=== PATIENT | male | born 1975 | race Caucasian/White ===

== ENCOUNTER 2019-02-08 20:57 | Emergency (ER) | payer BC ==
[2019-02-08 21:08] VITALS: BMI 30.7
--- NOTE | 2019-02-08 21:23 | ED PDOC ---
Arrival/HPI - General Chief Complaint: Lower Extremity Problem/Injury Time Seen by Provider: 02/08/19 21:03 Historian: Patient - History of Present Illness Narrative History of Present Illness (Text): 02/08/19 21:23 Williams Borden is a 44 year old, who denies any significant past medical history, who presents to the ED complaining of right leg pain. Patient notes while at work yesterday he began experiencing pain to his right anterior lower leg and noted associated redness and swelling to the area. Patient denies any recent trauma or injury. Patient also notes a wound to his right great toe for the past several days, which has not healed. Patient notes he has a family history of diabetes. Patient denies any fever, chills, nausea, vomiting, diarrhea, urinary symptoms, headache, dizziness, or any other complaints. Symptom Onset: Gradual Symptom Course: Unchanged Activities at Onset: Light Context: Home Past Medical History - Provider Review Nursing Documentation Reviewed: Yes - Cardiac Hx Cardiac Disorders: No - Pulmonary Hx Respiratory Disorders: Yes Hx Asthma: Yes - Psychiatric Hx Substance Use: No - Anesthesia Hx Anesthesia: No Family/Social History - Physician Review Nursing Documentation Reviewed: Yes Family/Social History: Unknown Family HX Smoking Status: Heavy Smoker > 10 Cigarettes Daily Hx Alcohol Use: No Hx Substance Use: No Allergies/Home Meds Allergies/Adverse Reactions: Allergies No Known Allergies Allergy (Verified 02/08/19 21:07) Home Medications: Home Meds Medication Instructions Recorded Confirmed Albuterol HFA [Ventolin HFA 90 2 puff IH PRN PRN 02/08/19 02/08/19 mcg/actuation (8 g)] Review of Systems - Physician Review All systems were reviewed & negative as marked: Yes - Review of Systems Constitutional: Normal. absent: Fevers Eyes: Normal ENT: Normal Respiratory: Normal. absent: SOB, Cough Cardiovascular: Normal. absent: Chest Pain Gastrointestinal: Normal. absent: Abdominal Pain, Diarrhea, Nausea, Vomiting Genitourinary Male: Normal. absent: Dysuria, Frequency, Hematuria, Urinary Output Changes Musculoskeletal: Normal. absent: Back Pain, Neck Pain Skin: Ulcer (+right great toe), Cellulitis (+pain/redness to right anterior lower leg) Neurological: Normal. absent: Headache, Dizziness Endocrine: Normal Hemo/Lymphatic: Normal Psychiatric: Normal Physical Exam Vital Signs Reviewed: Yes Vital Signs Temp Pulse Resp BP Pulse Ox 02/08/19 21:07 98.5 F 98 H 18 149/59 L 94 L Temperature: Afebrile Blood Pressure: Normal Pulse: Regular Respiratory Rate: Normal Appearance: Positive for: Well-Appearing, Non-Toxic, Comfortable Pain Distress: None Mental Status: Positive for: Alert and Oriented X 3 - Systems Exam Head: Present: Atraumatic, Normocephalic Pupils: Present: PERRL Extroacular Muscles: Present: EOMI Conjunctiva: Present: Normal Mouth: Present: Moist Mucous Membranes Neck: Present: Normal Range of Motion Respiratory/Chest: Present: Clear to Auscultation, Good Air Exchange. No: Respiratory Distress, Accessory Muscle Use Cardiovascular: Present: Regular Rate and Rhythm, Normal S1, S2. No: Murmurs Abdomen: No: Tenderness, Distention, Peritoneal Signs Back: Present: Normal Inspection Upper Extremity: Present: Normal Inspection. No: Cyanosis, Edema Lower Extremity: Present: Tenderness (Tenderness to right anterior lower leg), Swelling (Swelling to right lower leg), Erythema (Erythema to right anterior lower leg), Temperature Abnormalties (Warmth to right lower leg). No: Edema, Cyanosis, Deformity Neurological: Present: GCS=15, CN II-XII Intact, Speech Normal Skin: Present: Warm, Dry, Normal Color. No: Rashes Psychiatric: Present: Alert, Oriented x 3, Normal Insight, Normal Concentration Medical Decision Making ED Course and Treatment: 02/08/19 21:23 Impression: 44 year old male complaining of right lower leg pain, swelling, and redness. Plan: -- US Duplex Lower Extremities -- Labs, blood cultures -- Vancomycin -- Reassess and disposition Prior Visits: Notes and results from previous visits were reviewed. Progress Notes: 02/08/19 23:19 US Duplex Lower Extremities preliminary read negative for DVT. 02/09/19 00:25 Leaving Against Medical Advice (AMA): The patient is choosing to leave against medical advice. I have personally explained to the patient that choosing to do so may result in permanent bodily harm, disability, or . I have discussed at great length that without further evaluation and monitoring there may be unforeseen circumstances and/or deterioration causing permanent bodily harm or as a result of their choice . The patient is alert, oriented, and shows the mental capacity to make clear decisions regarding the patients health care at this time. The patient continues to wish to leave against medical advice. In light of the patients decision to leave against medical advice, the patient is aware of the importance to following up as instructed. The patient has been advised that they should return to the emergency room immediately if they change their mind at any time, or if their condition begins to change or worsen in any way. - Scribe Statement The provider has reviewed the documentation as recorded by the Trina Antunez Provider Scribe Attestation: All medical record entries made by the Scribe were at my direction and personally dictated by me. I have reviewed the chart and agree that the record accurately reflects my personal performance of the history, physical exam, medical decision making, and the department course for this patient. I have also personally directed, reviewed, and agree with the discharge instructions and disposition. Disposition/Present on Arrival - Present on Arrival History of DVT/PE: No History of Uncontrolled Diabetes: No Urinary Catheter: No History of Decub. Ulcer: No History Surgical Site Infection Following: None - Disposition Diagnosis: Cellulitis of leg without foot, right Disposition: AGAINST MEDICAL ADVICE Discharge Instructions (ExitCare): Cellulitis (ED) Additional Instructions: I am leaving against medical advice Prescriptions: Sulfamethoxazole/Trimethoprim [Bactrim DS 800 mg-160 mg] 1 tab PO BID #20 tab Cephalexin [cephalexin] 500 mg PO BID #20 cap Referrals: Hillary Cordero MD [Medical Doctor] - Follow up with primary Forms: [employer] (Yakut)
[2019-02-08] MEDS ORDERED: Vancomycin 1gm in NS 250ml 1 GM/250 ML BAG IVPB STA (21:29)
[2019-02-08 22:27] LABS: BASO # 0.02 K/mm3 (0.0-2.0); BASO % 0.1 % (0.0-3.0); EOS # 0.2 (0.0-0.7); EOS % 1.2 % (1.5-5.0); HEMOGLOBIN 15.1 g/dL (14.0-18.0); LYMPH # 2.1 (1.2-3.4); LYMPH % 11.4 % (22.0-35.0); MEAN CELL VOLUME 89.1 fl (80.0-105.0); MEAN CORPUSCULAR HEMOGLOBIN 29.4 pg (25.0-35.0); MEAN PLATELET VOLUME 10.3 fl (7.0-11.0); MONO # 1.2 (0.1-0.6); MONO % 6.8 % (1.0-6.0); RBC 5.13 10^6/uL (3.5-6.1)
[2019-02-08 22:47] LABS: ALB/GLOB RATIO 0.9 (1.1-1.8); ALBUMIN 3.6 g/dL (3.0-4.8); BLOOD UREA NITROGEN 20 mg/dL (7-21); CALCIUM 8.3 mg/dL (8.4-10.5); GFR NON-AFRICAN AMERICAN > 60
[2019-02-08 22:48] LABS: ALT/SGPT 21 U/L (7-56); AST/SGOT 30 U/L (17-59)
[2019-02-09 00:27] VITALS: BP 143/89; PULSE 89; RESP 16; TEMP 98.9; O2SAT 100
--- NOTE | 2019-02-09 17:34 | US ---
PROCEDURE: Right lower extremity venous US HISTORY: Leg pain and swelling. Evaluate for DVT. PHYSICIAN(S): Danilo Youssef M.D. TECHNIQUE: Duplex sonography and color-flow Doppler with graded compression were used to evaluate the deep venous system of the right lower extremity. FINDINGS: The visualized deep venous system of the right lower extremity is sonographically normal and compressible. Normal waveforms and augmentation are seen. There is no sonographic evidence for deep venous thrombosis in the visualized segments of the right lower extremity. IMPRESSION: 1. No sonographic evidence for deep venous thrombosis in the visualized segments of the right lower extremity.
== END 2019-02-09 00:26 | disposition left against medical advice (07) ==
LOC: ED 20:57
DX: L03.115 Cellulitis of right lower limb (principal); Z83.3 Family history of diabetes mellitus

== ENCOUNTER 2019-02-09 15:03 | Inpatient (IN) | payer BC ==
[2019-02-09] MEDS ORDERED: Piperacillin/Tazobact 3.375 gm 100 ML IVPB STA (15:57)
[2019-02-09] MEDS ORDERED: Vancomycin 1gm in NS 250ml 1 GM/250 ML BAG IVPB STA (15:57)
--- NOTE | 2019-02-09 16:03 | ED PDOC ---
Arrival/HPI - General Historian: Patient - History of Present Illness Narrative History of Present Illness (Text): 02/09/19 16:01 CC: RLE erythema and pain HPI: 44 yo male w/ no sig PMH comes to ED for evaluation of right lower extremity infection. Patient states he was in ED yesterday but signed out AMA due to work related reasons. Patient came back to hospital because the infection spread more which was demonstrated as patient had picture of the infection from yesterday. Patient reports he had subjective fevers. Denies prior episodes. Admits to hitting a 30lb box at work in the past week. Denies chest pain, sob, n/v, constipation or diarrhea, and dysuria. Time/Duration: > week Symptom Onset: Sudden Symptom Course: Worsening Activities at Onset: Rest Context: Sitting <Chanell Washington - Last Filed: 02/09/19 17:14> <Rik Tran DO - Last Filed: 02/09/19 18:26> - General Chief Complaint: Lower Extremity Problem/Injury Time Seen by Provider: 02/09/19 15:08 Past Medical History - Provider Review Nursing Documentation Reviewed: Yes - Past History Past History: Non-Contributing - Infectious Disease Hx of Infectious Diseases: None - Past Medical History Past Medical History: Non-Contributing - Cardiac Hx Cardiac Disorders: No - Pulmonary Hx Respiratory Disorders: Yes Hx Asthma: Yes - Neurological Hx Neurological Disorder: No - HEENT Hx HEENT Disorder: No - Renal Hx Renal Disorder: No - Endocrine/Metabolic Hx Endocrine Disorders: No - Hematological/Oncological Hx Blood Disorders: No - Integumentary Hx Dermatological Disorder: No - Musculoskeletal/Rheumatological Hx Musculoskeletal Disorders: No - Gastrointestinal Hx Gastrointestinal Disorders: No - Genitourinary/Gynecological Hx Genitourinary Disorders: No - Psychiatric Hx Psychophysiologic Disorder: No Hx Substance Use: No - Past Surgical History Past Surgical History: No Previous - Anesthesia Hx Anesthesia: No <Chanell Washington - Last Filed: 02/09/19 17:14> Family/Social History Family/Social History: No Known Family HX Smoking Status: Heavy Smoker > 10 Cigarettes Daily Hx Alcohol Use: No Hx Substance Use: No <Chanell Washington - Last Filed: 02/09/19 17:14> Allergies/Home Meds <Chanell Washington - Last Filed: 02/09/19 17:14> <Rik Tran DO - Last Filed: 02/09/19 18:26> Allergies/Adverse Reactions: Allergies No Known Allergies Allergy (Verified 02/08/19 21:07) Home Medications: Home Meds Medication Instructions Recorded Confirmed Albuterol HFA [Ventolin HFA 90 2 puff IH PRN PRN 02/08/19 02/08/19 mcg/actuation (8 g)] Review of Systems - Physician Review All systems were reviewed & negative as marked: Yes - Review of Systems Constitutional: Normal. absent: Fatigue, Weight Change, Fevers, Night Sweats Eyes: Normal. absent: Vision Changes, Photophobia, Eye Pain ENT: Normal. absent: Hearing Changes, Tinnitus, TMJ Pain Cardiovascular: Chest Pain. absent: Palpitations, Edema, Calf Pain, [place], Orthopnea Gastrointestinal: Normal. absent: Abdominal Pain, Stool Changes, Constipation, Diarrhea Genitourinary Male: Normal. absent: Dysuria, Frequency, Hematuria Skin: Cellulitis Neurological: Normal. absent: Headache, Dizziness Endocrine: Normal. absent: Diaphoresis, Polyuria Psychiatric: Normal. absent: Anxiety, Depression <FelixChanell - Last Filed: 02/09/19 17:14> Physical Exam Vital Signs Reviewed: Yes Vital Signs Temp Pulse Resp BP Pulse Ox 02/09/19 15:32 100.3 F H 92 H 18 125/77 95 Temperature: Febrile Blood Pressure: Normal Pulse: Regular Respiratory Rate: Normal Appearance: Positive for: Well-Appearing, Non-Toxic, Comfortable. No: Ill- Appearing, Unkept, Uncomfortable Pain Distress: None Mental Status: Positive for: Alert and Oriented X 3 - Systems Exam Head: Present: Atraumatic, Normocephalic. No: Tenderness, Contusion, Swelling Pupils: Present: PERRL Extroacular Muscles: Present: EOMI Conjunctiva: Present: Normal Respiratory/Chest: Present: Clear to Auscultation, Good Air Exchange. No: Respiratory Distress, Accessory Muscle Use, Wheezes, Decreased Breath Sounds Cardiovascular: Present: Regular Rate and Rhythm, Normal S1, S2. No: Murmurs, Irregular Rhythm Abdomen: Present: Normal Bowel Sounds. No: Tenderness, Distention, Peritoneal Signs, Rebound, Guarding Upper Extremity: Present: Normal Inspection. No: Cyanosis, Edema Lower Extremity: Present: Tenderness, Erythema, Other (right distal leg with anterior erythema, no fluctuance, no oozing, or draining or pus appreciated). No: Normal Inspection Neurological: Present: GCS=15, CN II-XII Intact, Speech Normal Skin: Present: Warm, Dry, Normal Color, Other (in between first 2 digits on foot on right extremity, open lesion (dermatopyhyte infection suspecteD)). No: Rashes Psychiatric: Present: Alert, Oriented x 3, Normal Insight, Normal Concentration <Chanell Washington - Last Filed: 02/09/19 17:14> Vital Signs Temp Pulse Resp BP Pulse Ox 02/09/19 15:32 100.3 F H 92 H 18 125/77 95 <Rik Tran DO - Last Filed: 02/09/19 18:26> Medical Decision Making ED Course and Treatment: 02/09/19 16:09 Impression 44 yo no PMH evaluated for right lower extremity cellulitis Plan -CBC/CMP -IV Vanc/ IV Zosyn empiric coverage for common organisms -BCx Prior Visits All prior visits and lab work reviewed for this evaluation Progress Notes will trend cbc/cmp, will need IV abx for low grade temp on admission with WBC recorded yesterday Patient will need likely 2 days of IV abx prior to oral replacement therapy for a complete 7 day course Pending labwork, Had ultrasound of lower extremity on right which was negative for DVT 02/09/19 16:57 CBC White count trending downward Tylenol 650mg given for fever Calling Dr. Wei to see if will accept Patient will likely need 2 day inpatient admission for IV abx (fever+white count) and clinical response to abx Will get baseline Lactate 02/09/19 17:[address] Wei who requested the following orders to be placed: Lactate, CT of lower extremity w/ contrast, PT/INR studies Dr. Wei asked ED resident to call medicine resident to inform medicine team of new admission Patient will be admitted for minimal 2-3 days for IV abx as per medicine team. Information was relayed to patient as well. Re-evaluation Time: 17:16 Reassessment Condition: Re-examined, Unchanged - Lab Interpretations Lab Results: 02/09/19 16:28 02/09/19 16:28 Lab Results 02/09/19 16:28: Sodium 140, Potassium 3.9, Chloride 103, Carbon Dioxide 27, Anion Gap 14, BUN 19, Creatinine 1.1, Est GFR ( Amer) > 60, Est GFR (Non- Af Amer) > 60, Random Glucose 107, Calcium 8.4, Total Bilirubin 0.3, AST 23, ALT 16, Alkaline Phosphatase 69, Total Protein 7.9, Albumin 3.7, Globulin 4.2, Albumin/Globulin Ratio 0.9 L 02/09/19 16:28: WBC 14.3 H D, RBC 5.05, Hgb 14.6, Hct 45.5, MCV 90.1, MCH 28.9, MCHC 32.1, RDW 14.2, Plt Count 236, MPV 8.6, Neut % (Auto) 69.8 H, Lymph % (Auto) 18.3 L, [place] % (Auto) 10.3 H, Eos % (Auto) 1.5, Baso % (Auto) 0.1, Lymph # (Auto) 2.6, [place] # (Auto) 1.5 H, Eos # (Auto) 0.2, Baso # (Auto) 0.01, Absolute Neuts (auto) 10.02 H I have reviewed the lab results: Yes Interpretation: Abnormal lab values - Transfer of Care Pending Radiology Studies:: CT lower extremity of right with contrast <Chanell Washington - Last Filed: 02/09/19 17:14> ED Course and Treatment: 02/09/19 17:30 Patient Seen with Resident: In agreement with resident note which contains more details about the patient. Patient seen and evaluated with resident. Came up with plan and treatment together. - Lab Interpretations Lab Results: Total Bilirubin 0.3 mg/dL (0.2-1.3) 02/09/19 16:28 AST 23 U/L (17-59) 02/09/19 16:28 ALT 16 U/L (7-56) 02/09/19 16:28 Alkaline Phosphatase 69 U/L (38-126) 02/09/19 16:28 Total Protein 7.9 g/dL (5.8-8.3) 02/09/19 16:28 Albumin 3.7 g/dL (3.0-4.8) 02/09/19 16:28 Globulin 4.2 gm/dL 02/09/19 16:28 Albumin/Globulin Ratio 0.9 (1.1-1.8) L 02/09/19 16:28 - Medication Orders Current Medication Orders: Discontinued Medications Acetaminophen (Tylenol 325mg Tab) 650 mg PO STAT STA Stop: 02/09/19 16:57 Vancomycin HCl (Vancomycin 1gm) 1 gm in 250 mls @ 167 mls/hr IVPB STAT STA; Protocol Stop: 02/09/19 17:26 Piperacillin Sod/Tazobactam Sod (Zosyn 3.375 In Ns 100ml) 100 mls @ 200 mls/hr IVPB STAT STA; Protocol Stop: 02/09/19 16:26 Last Admin: 02/09/19 16:27 Dose: 200 mls/hr eMAR Start Stop Document 02/09/19 16:27 [email or web address] (Rec: 02/09/19 16:29 [email or web address] [id number]) Intravenous Solution Start Date 02/09/19 Start Time 16:29 <Rik Tran DO - Last Filed: 02/09/19 18:26> - PA / DEPENDENCY COUNSELOR / Resident Statement LISA has reviewed & agrees with the documentation as recorded. LISA has examined the patient and agrees with the treatment plan. <Rik Tran DO - Last Filed: 02/09/19 18:26> Disposition/Present on Arrival - Present on Arrival Any Indicators Present on Arrival: No History of DVT/PE: No History of Uncontrolled Diabetes: No Urinary Catheter: No History of Decub. Ulcer: No History Surgical Site Infection Following: None - Disposition Have Diagnosis and Disposition been Completed?: Yes Disposition Time: 17:17 Patient Plan: Admission <Chanell Washington - Last Filed: 02/09/19 17:14> - Disposition Disposition Time: 16:55 <Rik Tran DO - Last Filed: 02/09/19 18:26> - Disposition Diagnosis: Cellulitis of leg without foot, right Patient Problems: Current Active Problems Problem Status Onset Cellulitis of leg without foot, right Acute Condition: STABLE
[2019-02-09 16:32] LABS: BASO # 0.01 K/mm3 (0.0-2.0); BASO % 0.1 % (0.0-3.0); EOS # 0.2 (0.0-0.7); EOS % 1.5 % (1.5-5.0); HEMOGLOBIN 14.6 g/dL (14.0-18.0); LYMPH # 2.6 (1.2-3.4); LYMPH % 18.3 % (22.0-35.0); MEAN CELL VOLUME 90.1 fl (80.0-105.0); MEAN CORPUSCULAR HEMOGLOBIN 28.9 pg (25.0-35.0); MEAN CORPUSCULAR HGB CONC 32.1 g/dl (31.0-37.0); MEAN PLATELET VOLUME 8.6 fl (7.0-11.0); MONO # 1.5 (0.1-0.6); MONO % 10.3 % (1.0-6.0); RBC 5.05 10^6/uL (3.5-6.1); RED CELL DISTRIBUTION WIDTH 14.2 % (11.5-14.5); WHITE BLOOD COUNT 14.3 10^3/uL (4.5-11.0)
[2019-02-09 16:55] LABS: ALB/GLOB RATIO 0.9 (1.1-1.8); ALBUMIN 3.7 g/dL (3.0-4.8); ALT/SGPT 16 U/L (7-56); AST/SGOT 23 U/L (17-59); BLOOD UREA NITROGEN 19 mg/dL (7-21); CALCIUM 8.4 mg/dL (8.4-10.5); GFR NON-AFRICAN AMERICAN > 60
[2019-02-09 18:05] LABS: VENOUS BLOOD GAS PO2 54 mm/Hg (30-55)
[2019-02-09 18:11] LABS: INR 1.21; PARTIAL THROMBOPLASTIN TIME 32.5 Seconds (26.9-38.3); PROTHROMBIN TIME 13.4 SECONDS (9.4-12.5)
--- NOTE | 2019-02-09 18:28 | CP.PCM.HP ---
History of Present Illness - History of Present Illness History of Present Illness: Priyank Shafer, PGY1 H&P for Dr Sanjuana Fortune: anterior right lower extremity pain/swelling x2 days 44 y/o male with PMH of asthma, COPD presented to the ED with anterior right lower extremity pain/swelling x2 days. Patient reports pain is progressive, dull, 7/10, not radiating, partially relieved with tylenol/ibuprofen and rest, worsens with ambulation. Pain is associated with swelling, redness, tenderness to touch, subjective fever, chills. Patient is not aware if he might have trauma to the area. Denies local wound in the area or insect bite. Patient visited [facility] yesterday for the same symptoms but signed AMA as he had to go to work. Came today as symptoms are getting worse. Patient denies CP, SOB, palpitations, muscle weakness, loss of sensation, abdominal pain, N/V/D. 12 points ROS reviewed otherwise negative PMH: COPD, asthma PSH: denies Meds: albuterol All: NKDA SH: smokes 1 ppd/10 years, denies alcohol or drud use FH: father, DM PMD: none Present on Admission - Present on Admission Any Indicators Present on Admission: No Past Patient History - Infectious Disease Hx of Infectious Diseases: None - Past Social History Smoking Status: Heavy Smoker > 10 Cigarettes Daily - CARDIAC Hx Cardiac Disorders: No - PULMONARY Hx Respiratory Disorders: Yes Hx Asthma: Yes - NEUROLOGICAL Hx Neurological Disorder: No - HEENT Hx HEENT Problems: No - RENAL Hx Chronic Kidney Disease: No - ENDOCRINE/METABOLIC Hx Endocrine Disorders: No - HEMATOLOGICAL/ONCOLOGICAL Hx Blood Disorders: No - INTEGUMENTARY Hx Dermatological Problems: No - MUSCULOSKELETAL/RHEUMATOLOGICAL Hx Musculoskeletal Disorders: No - GASTROINTESTINAL Hx Gastrointestinal Disorders: No - GENITOURINARY/GYNECOLOGICAL Hx Genitourinary Disorders: No - PSYCHIATRIC Hx Psychophysiologic Disorder: No Hx Substance Use: No - SURGICAL HISTORY Hx Surgeries: No - ANESTHESIA Hx Anesthesia: No Meds Allergies/Adverse Reactions: Allergies Allergy/AdvReac Type Severity Reaction Status Date / Time No Known Allergies Allergy Verified 02/08/19 21:07 Physical Exam - Constitutional Appears: Well, Non-toxic, No Acute Distress - Head Exam Head Exam: ATRAUMATIC, NORMAL INSPECTION, NORMOCEPHALIC - Eye Exam Eye Exam: EOMI, Normal appearance, PERRL Pupil Exam: NORMAL ACCOMODATION, PERRL - ENT Exam ENT Exam: Mucous Membranes Moist, Normal Exam - Neck Exam Neck exam: Positive for: Normal Inspection - Respiratory Exam Respiratory Exam: Prolonged Expiratory Phase, Wheezes (b/l diffuse). absent: Rales, Rhonchi, Respiratory Distress - Cardiovascular Exam Cardiovascular Exam: +S1, +S2. absent: Gallop, JVD, RRR, Rubs - GI/Abdominal Exam GI & Abdominal Exam: Normal Bowel Sounds, Soft. absent: Guarding, Mass, Rebound, Rigid, Tenderness - Expanded Lower Extremities Exam Right Lower Leg Exam: erythema, swelling, tenderness. absent: Michael's sign Neuro vacular tendon exam: absent: motor deficit, pulse deficit, sensory deficit - Back Exam Back exam: NORMAL INSPECTION - Neurological Exam Neurological exam: Alert, CN II-XII Intact, Normal Gait, Oriented x3, Reflexes Normal - Psychiatric Exam Psychiatric exam: Normal Affect, Normal Mood - Skin Skin Exam: Erythema (RLE), Normal Color, Warm Results - Vital Signs Recent Vital Signs: Last Vital Signs Temp 99.9 F H 02/09/19 17:45 Pulse 87 02/09/19 17:45 Resp 18 02/09/19 17:45 BP 129/89 02/09/19 17:45 Pulse Ox 99 02/09/19 17:45 - Labs Result Diagrams: 02/09/19 16:28 02/09/19 16:28 Labs: Laboratory Results - last 24 hr 02/09/19 02/09/19 02/09/19 16:28 16:28 17:55 WBC 14.3 H D RBC 5.05 Hgb 14.6 Hct 45.5 MCV 90.1 MCH 28.9 MCHC 32.1 RDW 14.2 Plt Count 236 MPV 8.6 Neut % (Auto) 69.8 H Lymph % (Auto) 18.3 L [place] % (Auto) 10.3 H Eos % (Auto) 1.5 Baso % (Auto) 0.1 Lymph # (Auto) 2.6 [place] # (Auto) 1.5 H Eos # (Auto) 0.2 Baso # (Auto) 0.01 Absolute Neuts (auto) 10.02 H PT INR APTT pO2 54 VBG pH 7.40 VBG pCO2 42.0 VBG HCO3 26.0 VBG Total CO2 27.3 VBG O2 Sat (Calc) 92.1 H VBG Base Excess 1.0 VBG Potassium 3.5 L Glucose 106 Lactate 1.2 FiO2 21.0 Sodium 140 137.0 Potassium 3.9 Chloride 103 105.0 Carbon Dioxide 27 Anion Gap 14 BUN 19 Creatinine 1.1 Est GFR ( Amer) > 60 Est GFR (Non-Af Amer) > 60 Random Glucose 107 Calcium 8.4 Total Bilirubin 0.3 AST 23 ALT 16 Alkaline Phosphatase 69 Total Protein 7.9 Albumin 3.7 Globulin 4.2 Albumin/Globulin Ratio 0.9 L Venous Blood Potassium 3.5 L 02/09/19 17:58 WBC RBC Hgb Hct MCV MCH MCHC RDW Plt Count MPV Neut % (Auto) Lymph % (Auto) [place] % (Auto) Eos % (Auto) Baso % (Auto) Lymph # (Auto) [place] # (Auto) Eos # (Auto) Baso # (Auto) Absolute Neuts (auto) PT 13.4 H INR 1.21 APTT 32.5 pO2 VBG pH VBG pCO2 VBG HCO3 VBG Total CO2 VBG O2 Sat (Calc) VBG Base Excess VBG Potassium Glucose Lactate FiO2 Sodium Potassium Chloride Carbon Dioxide Anion Gap BUN Creatinine Est GFR ( Amer) Est GFR (Non-Af Amer) Random Glucose Calcium Total Bilirubin AST ALT Alkaline Phosphatase Total Protein Albumin Globulin Albumin/Globulin Ratio Venous Blood Potassium Assessment & Plan - Assessment and Plan (Free Text) Assessment: 44 y/o male with PMH of asthma, COPD presented to the ED with anterior right lower extremity pain/swelling x2 days. Found to be febrile with mild leukocytosis. Patient admitted to med/surg for RLE cellulitis Plan: Right LE cellulitis: -given one dose of IV Vanc/Zosyn in ED -started teflaro 600 mg q12h -low grade fever, mild leukocytosis -PT/INR 13.4/1.21 -f/u CT lower extremity w/ contrast -f/u CRP, ESR, procal, blood cx -continue IVF NS @75 cc/hr -BCx, lactate -LE duplex US negative for DVT -Tylenol 650mg prn for pain -ID consulted, Dr Cesar Asthma/COPD: -duoneb harry/prn -O2 NC prn -CXR -EKG Heavy smoker: -nicotine patch 21 -patient counseled on smoking cessation -f/u TSH, lipid profile, a1c PPX: -DVT: SCD, heparin sq -GI: protonix -Regular diet Case revieved and plan discussed with attending Dr Sanjuana Shafer, DO PGY1
[2019-02-09] MEDS ORDERED: Iohexol 350 MG/100 ML VIAL ONE (18:41)
[2019-02-09] MEDS ORDERED: Albuterol-Ipratrop 3 mg / 0.5 (3 ml) UD IH PRN (18:46)
[2019-02-09] MEDS ORDERED: Sodium Chloride 0.9% 1,000 ML IV SCH (19:00)
[2019-02-09 19:33] LABS: HDL CHOLESTEROL 40 mg/dL (29-60)
[2019-02-09 19:44] LABS: LDL CHOLESTEROL 69 mg/dL (0-129)
[2019-02-09] MEDS: Albuterol-Ipratrop 3 mg / 0.5 (3 ml) UD IH SCH (20:00)
[2019-02-09] MEDS ORDERED: Ceftaroline 600 MG in Sodium Chloride 0.9% 100 ML IVPB SCH (22:00)
[2019-02-10 00:18] VITALS: BMI 28.8
[2019-02-10] MEDS ORDERED: Pneumococcal 23-Valent Vaccine IM ONE (00:18)
[2019-02-10] MEDS: Albuterol-Ipratrop 3 mg / 0.5 (3 ml) UD IH SCH ×4 (01:34→20:37)
[2019-02-10] MEDS: Pantoprazole 40 mg EC Tab PO SCH (05:08)
[2019-02-10] MEDS: Vancomycin 1gm in NS 250ml 1 GM/250 ML BAG IVPB SCH ×2 (05:09→17:08)
[2019-02-10] MEDS ORDERED: Pantoprazole 40 mg EC Tab PO SCH (06:00)
[2019-02-10 07:54] LABS: BASO # 0.02 K/mm3 (0.0-2.0); BASO % 0.2 % (0.0-3.0); EOS # 0.3 (0.0-0.7); EOS % 2.5 % (1.5-5.0); HEMOGLOBIN 14.2 g/dL (14.0-18.0); LYMPH # 1.8 (1.2-3.4); LYMPH % 15.2 % (22.0-35.0); MEAN CELL VOLUME 89.9 fl (80.0-105.0); MEAN CORPUSCULAR HEMOGLOBIN 28.6 pg (25.0-35.0); MEAN CORPUSCULAR HGB CONC 31.8 g/dl (31.0-37.0); MEAN PLATELET VOLUME 8.7 fl (7.0-11.0); MONO # 1.4 (0.1-0.6); MONO % 11.9 % (1.0-6.0); RBC 4.96 10^6/uL (3.5-6.1); RED CELL DISTRIBUTION WIDTH 14.2 % (11.5-14.5); WHITE BLOOD COUNT 11.7 10^3/uL (4.5-11.0)
[2019-02-10 08:15] LABS: ALB/GLOB RATIO 0.9 (1.1-1.8); ALBUMIN 3.4 g/dL (3.0-4.8); ALT/SGPT 24 U/L (7-56); AST/SGOT 18 U/L (17-59); BILIRUBIN,DIRECT 0.2 mg/dL (0.0-0.4); BLOOD UREA NITROGEN 13 mg/dL (7-21); CALCIUM 7.8 mg/dL (8.4-10.5); GFR NON-AFRICAN AMERICAN > 60
--- NOTE | 2019-02-10 09:27 | US ---
HISTORY: Leg pain and swelling. Evaluate for DVT PHYSICIAN(S): Danilo Youssef MD. TECHNIQUE: Duplex sonography and color-flow Doppler with graded compression were used to evaluate the deep venous systems of both lower extremities. FINDINGS: The visualized deep venous systems of both lower extremities are sonographically normal and compressible. Normal wave forms and augmentation are seen. There is no sonographic evidence for deep venous thrombosis in the visualized segments of both lower extremities. IMPRESSION: No sonographic evidence for deep venous thrombosis in the visualized segments of both lower extremities.
--- NOTE | 2019-02-10 09:53 | CARD ---
APPROVED REPORT Date of service: 02/09/2019 EKG Measurement Heart [id number] <Conclusion> Normal sinus rhythm Nonspecific T wave abnormality Abnormal ECG
--- NOTE | 2019-02-10 10:14 | CP.PCM.PN ---
Subjective - Date & Time of Evaluation Date of Evaluation: 02/10/19 Time of Evaluation: 10:13 - Subjective Subjective: Alex Elias DO, PGY-2: Progress Note for Dr. Wei Patient was seen and examined at bedside. Patient denies any fever or chills. He reports leg feels less painful today. Otherwise, no adverse events noted. Objective - Vital Signs/Intake and Output Vital Signs (last 24 hours): Temp Pulse Resp BP Pulse Ox 98.6 F 100 H 20 122/74 96 02/10/19 06:00 02/10/19 06:00 02/10/19 06:00 02/10/19 06:00 02/10/19 06:00 Intake and Output: 02/10/19 02/10/19 06:59 18:59 Intake Total 800 Balance 800 - Medications Medications: Current Medications Acetaminophen (Tylenol 325mg Tab) 650 mg PO Q6H PRN PRN Reason: Pain, moderate (4-7) Acetaminophen (Tylenol 325mg Tab) 650 mg PO Q6 PRN PRN Reason: TEMP>=99.5F Acetaminophen (Tylenol 650 Mg Supp) 650 mg RC Q6H PRN PRN Reason: TEMP>=99.5F Albuterol/Ipratropium (Duoneb 3 Mg/0.5 Mg (3 Ml) Ud) 3 ml IH Q2H PRN PRN Reason: Shortness of Breath Albuterol/Ipratropium (Duoneb 3 Mg/0.5 Mg (3 Ml) Ud) 3 ml IH [id number] [facility] Last Admin: 02/10/19 07:50 Dose: 3 ml Clotrimazole (Lotrimin 1%) 0 gm TOP BID [facility] Stop: 02/20/19 10:01 Docusate Sodium (Colace) 100 mg PO TID [facility] Enoxaparin Sodium (Lovenox) 40 mg SC DAILY [facility]; Protocol Furosemide (Lasix) 40 mg IVP DAILY [facility] Stop: 02/12/19 10:01 Ceftriaxone Sodium (Rocephin 2 Gm Ivpb) 2 gm in 100 mls @ 100 mls/hr IVPB DAILY [facility]; Protocol Stop: 02/19/19 10:01 Vancomycin HCl (Vancomycin 1gm) 1 gm in 250 mls @ 167 mls/hr IVPB 0600,1800 [facility]; Protocol Last Admin: 02/10/19 05:09 Dose: 167 mls/hr Nicotine (Nicoderm Cq) 1 patch TD DAILY [facility] Ondansetron HCl (Zofran Inj) 4 mg IVP Q4H PRN PRN Reason: Nausea/Vomiting Pantoprazole Sodium (Protonix Ec Tab) 40 mg PO 0600 [facility] Last Admin: 02/10/19 05:08 Dose: 40 mg Polyethylene Glycol (Miralax) 17 gm PO BID [facility] - Labs Labs: 02/10/19 07:30 02/10/19 07:30 PT 13.4 SECONDS (9.4-12.5) H 02/09/19 17:58 INR 1.21 02/09/19 17:58 APTT 32.5 Seconds (26.9-38.3) 02/09/19 17:58 - Constitutional Appears: Well, Non-toxic - Head Exam Head Exam: ATRAUMATIC, NORMOCEPHALIC - Eye Exam Eye Exam: EOMI, Normal appearance - ENT Exam ENT Exam: Mucous Membranes Moist, Normal Oropharynx - Neck Exam Neck Exam: Normal Inspection - Respiratory Exam Respiratory Exam: Wheezes (bilaterally), NORMAL BREATHING PATTERN. absent: Accessory Muscle Use - Cardiovascular Exam Cardiovascular Exam: RRR, +S1, +S2 - GI/Abdominal Exam GI & Abdominal Exam: Soft, Normal Bowel Sounds - Extremities Exam Extremities Exam: absent: Calf Tenderness Additional comments: right lower extremity appears reddened anteriorly, and warm and swollen compared to left leg - Back Exam Back Exam: NORMAL INSPECTION. absent: CVA tenderness (L), CVA tenderness (R) - Neurological Exam Neurological Exam: Alert, Awake, Oriented x3 - Psychiatric Exam Psychiatric exam: Normal Affect, Normal Mood - Skin Skin Exam: Dry, Intact, Normal Color, Warm Assessment and Plan - Assessment and Plan (Free Text) Assessment: 44 y/o male with PMH of asthma, COPD presented to the ED with anterior right lower extremity pain/swelling x2 days. Found to be febrile with mild leukocytosis. Patient admitted to med/surg for RLE cellulitis Plan: Right LE cellulitis: - given one dose of IV Vanc/Zosyn in ED - Vancomycin 1 gram q12h IVPB - Ceftriaxone 2 gram daily - lower extremity CT w/ contrast shows findings consistent with cellulitis, no abscess - CRP > 15, ESR 40+ - LE duplex US negative for DVT - Tylenol 650mg prn for pain/fever - ID consulted, Dr Cesar - HgbA1c is 6.2 - Lasix 40 mg IVp daily for three total doses to decrease lower extremity swelling Asthma/COPD: -duoneb [facility] q6h -O2 NC prn -CT chest without contrast ordered - Heavy smoker: - nicotine patch 21 - patient counseled on smoking cessation - lipid panel shows elevated TGs at 221, otherwise acceptable PPX: -DVT: SCD, heparin sq -GI: protonix -Regular diet Case revieved and plan discussed with attending Dr Wei
--- NOTE | 2019-02-10 10:18 | CT ---
Date of service: 02/10/2019 PROCEDURE: CT Chest without contrast HISTORY: COPD/WHEEZING COMPARISON: None available. TECHNIQUE: Contiguous axial images were obtained through the chest without intravenous contrast enhancement. Sagittal and coronal reconstructions were performed. Radiation dose: Total exam DLP = 400.82 mGy-cm. This CT exam was performed using one or more of the following dose reduction techniques: Automated exposure control, adjustment of the mA and/or kV according to patient size, and/or use of iterative reconstruction technique. FINDINGS: LUNGS: In each posterior lower lobe right slightly greater than left, peribronchial thickening and trace low-density ground-glass opacities-compatible with inflammation are noted. No dense consolidation appreciated.. Visualized airway clear No suspicious masses identified. MEDIASTINUM: Unremarkable thoracic aorta. No aneurysm. Normal sized heart. Main pulmonary artery unremarkable. No vascular congestion. No lymphadenopathy. There are shoddy mediastinal and hilar lymph nodes present. No imaging suspect appearing lymph nodes suggested. No aortic atherosclerotic calcification. PLEURA: No pleural fluid. No pneumothorax. BONES: No fracture. No destructive lesion. UPPER ABDOMEN: Incidental gallbladder gallstones present. OTHER FINDINGS: None. IMPRESSION: In each posterior inferior aspect of each lower lobe are nonspecific inflammatory changes as referenced above. No dense consolidation seen. No suspicious mass. No central tracheobronchial airway pathology noted. Other findings as above.
--- NOTE | 2019-02-10 10:29 | CP.PCM.CON ---
<Tomas Gunn - Last Filed: 02/10/19 13:08> History of Present Illness - History of Present Illness History of Present Illness: Infectious disease consult note: 44-year-old male with past medical history of asthma and COPD presents to the hospital with right lower extremity redness, swelling and pain. Patient states that his symptoms started to 3 days ago. 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 Patient denies this ever occurring before. Denies any recent travel or insect bites. Of note patient was here yesterday and signed out AMA to go to work. He denies any fevers or chills. No other complaints 12 point ROS performed and negative other than stated above [place] PMH: Asthma and COPD PSH: Denies Allergies: No known drug allergies SH: Has smoked 1 pack/day for 20 years, denies any alcohol or drug usage FH: Father with diabetes Review of Systems - Review of Systems All systems: reviewed and no additional remarkable complaints except Past Patient History - Infectious Disease Hx of Infectious Diseases: None - Past Social History Smoking Status: Current Some Days Smoker - CARDIAC Hx Cardiac Disorders: No - PULMONARY Hx Respiratory Disorders: Yes Hx Asthma: Yes Hx Chronic Obstructive Pulmonary Disease (COPD): Yes - NEUROLOGICAL Hx Neurological Disorder: No - HEENT Hx HEENT Problems: No - RENAL Hx Chronic Kidney Disease: No - ENDOCRINE/METABOLIC Hx Endocrine Disorders: No - HEMATOLOGICAL/ONCOLOGICAL Hx Blood Disorders: No - INTEGUMENTARY Hx Dermatological Problems: Yes Other/Comment: 02-09-19 RIGHT GREENBERG BONE WITH DEEP BURGUNDY COLORED SKIN.EDEMA +2 ERYTHEMA PAIN. LEG CELLULITIS. - MUSCULOSKELETAL/RHEUMATOLOGICAL Hx Musculoskeletal Disorders: No Hx Falls: No - GASTROINTESTINAL Hx Gastrointestinal Disorders: No - GENITOURINARY/GYNECOLOGICAL Hx Genitourinary Disorders: No - PSYCHIATRIC Hx Psychophysiologic Disorder: No Hx Substance Use: No - SURGICAL HISTORY Hx Surgeries: No - ANESTHESIA Hx Anesthesia: No Meds Allergies/Adverse Reactions: Allergies Allergy/AdvReac Type Severity Reaction Status Date / Time No Known Allergies Allergy Verified 02/09/19 20:51 - Medications Medications: Current Medications Acetaminophen (Tylenol 325mg Tab) 650 mg PO Q6H PRN PRN Reason: Pain, moderate (4-7) Acetaminophen (Tylenol 325mg Tab) 650 mg PO Q6 PRN PRN Reason: TEMP>=99.5F Acetaminophen (Tylenol 650 Mg Supp) 650 mg RC Q6H PRN PRN Reason: TEMP>=99.5F Albuterol/Ipratropium (Duoneb 3 Mg/0.5 Mg (3 Ml) Ud) 3 ml IH Q2H PRN PRN Reason: Shortness of Breath Albuterol/Ipratropium (Duoneb 3 Mg/0.5 Mg (3 Ml) Ud) 3 ml IH [id number] [facility] Last Admin: 02/10/19 07:50 Dose: 3 ml Clotrimazole (Lotrimin 1%) 0 gm TOP BID [facility] Stop: 02/20/19 10:01 Docusate Sodium (Colace) 100 mg PO TID [facility] Enoxaparin Sodium (Lovenox) 40 mg SC DAILY [facility]; Protocol Furosemide (Lasix) 40 mg IVP DAILY [facility] Stop: 02/12/19 10:01 Ceftriaxone Sodium (Rocephin 2 Gm Ivpb) 2 gm in 100 mls @ 100 mls/hr IVPB DAILY [facility]; Protocol Stop: 02/19/19 10:01 Vancomycin HCl (Vancomycin 1gm) 1 gm in 250 mls @ 167 mls/hr IVPB 0600,1800 [facility]; Protocol Last Admin: 02/10/19 05:09 Dose: 167 mls/hr Nicotine (Nicoderm Cq) 1 patch TD DAILY [facility] Ondansetron HCl (Zofran Inj) 4 mg IVP Q4H PRN PRN Reason: Nausea/Vomiting Pantoprazole Sodium (Protonix Ec Tab) 40 mg PO 0600 [facility] Last Admin: 02/10/19 05:08 Dose: 40 mg Polyethylene Glycol (Miralax) 17 gm PO BID [facility] Physical Exam - Constitutional Appears: No Acute Distress - Head Exam Head Exam: ATRAUMATIC, NORMOCEPHALIC - Eye Exam Eye Exam: EOMI, PERRL - ENT Exam ENT Exam: Mucous Membranes Moist - Respiratory Exam Respiratory Exam: Clear to Auscultation Bilateral. absent: Rales, Wheezes - Cardiovascular Exam Cardiovascular Exam: REGULAR RHYTHM, +S1, +S2 - GI/Abdominal Exam GI & Abdominal Exam: Soft. absent: Distended, Tenderness - Extremities Exam Extremities exam: Negative for: calf tenderness Additional comments: Right lower extremity: diffuse erythema and edema covering the anterior greenberg. Warm to the touch Toes: athlete foot btwn toes Results - Vital Signs Recent Vital Signs: Last Vital Signs Temp 98.6 F 02/10/19 06:00 Pulse 100 H 02/10/19 06:00 Resp 20 02/10/19 06:00 BP 122/74 02/10/19 06:00 Pulse Ox 96 02/10/19 06:00 - Labs Result Diagrams: 02/10/19 07:30 02/10/19 07:30 Labs: Laboratory Results - last 24 hr 02/09/19 02/09/19 02/09/19 16:28 16:28 16:28 WBC 14.3 H D RBC 5.05 Hgb 14.6 Hct 45.5 MCV 90.1 MCH 28.9 MCHC 32.1 RDW 14.2 Plt Count 236 MPV 8.6 Neut % (Auto) 69.8 H Lymph % (Auto) 18.3 L [place] % (Auto) 10.3 H Eos % (Auto) 1.5 Baso % (Auto) 0.1 Lymph # (Auto) 2.6 [place] # (Auto) 1.5 H Eos # (Auto) 0.2 Baso # (Auto) 0.01 Absolute Neuts (auto) 10.02 H ESR PT INR APTT pO2 VBG pH VBG pCO2 VBG HCO3 VBG Total CO2 VBG O2 Sat (Calc) VBG Base Excess VBG Potassium Glucose Lactate FiO2 Sodium 140 Potassium 3.9 Chloride 103 Carbon Dioxide 27 Anion Gap 14 BUN 19 Creatinine 1.1 Est GFR ( Amer) > 60 Est GFR (Non-Af Amer) > 60 POC Glucose (mg/dL) Random Glucose 107 Calcium 8.4 Phosphorus Magnesium Total Bilirubin 0.3 Direct Bilirubin AST 23 ALT 16 Alkaline Phosphatase 69 Total Protein 7.9 Albumin 3.7 Globulin 4.2 Albumin/Globulin Ratio 0.9 L Triglycerides 221 H Cholesterol 155 LDL Cholesterol Direct 69 HDL Cholesterol 40 Thyroxine (T4) TSH 3rd Generation Venous Blood Potassium 02/09/19 02/09/19 02/09/19 16:28 16:28 17:55 WBC RBC Hgb Hct MCV MCH MCHC RDW Plt Count MPV Neut % (Auto) Lymph % (Auto) [place] % (Auto) Eos % (Auto) Baso % (Auto) Lymph # (Auto) [place] # (Auto) Eos # (Auto) Baso # (Auto) Absolute Neuts (auto) ESR 43 H PT INR APTT pO2 54 VBG pH 7.40 VBG pCO2 42.0 VBG HCO3 26.0 VBG Total CO2 27.3 VBG O2 Sat (Calc) 92.1 H VBG Base Excess 1.0 VBG Potassium 3.5 L Glucose 106 Lactate 1.2 FiO2 21.0 Sodium 137.0 Potassium Chloride 105.0 Carbon Dioxide Anion Gap BUN Creatinine Est GFR ( Amer) Est GFR (Non-Af Amer) POC Glucose (mg/dL) Random Glucose Calcium Phosphorus Magnesium Total Bilirubin Direct Bilirubin AST ALT Alkaline Phosphatase Total Protein Albumin Globulin Albumin/Globulin Ratio Triglycerides Cholesterol LDL Cholesterol Direct HDL Cholesterol Thyroxine (T4) 5.3 L TSH 3rd Generation 1.21 Venous Blood Potassium 3.5 L 02/09/19 02/09/19 02/10/19 17:58 21:18 05:48 WBC RBC Hgb Hct MCV MCH MCHC RDW Plt Count MPV Neut % (Auto) Lymph % (Auto) [place] % (Auto) Eos % (Auto) Baso % (Auto) Lymph # (Auto) [place] # (Auto) Eos # (Auto) Baso # (Auto) Absolute Neuts (auto) ESR PT 13.4 H INR 1.21 APTT 32.5 pO2 VBG pH VBG pCO2 VBG HCO3 VBG Total CO2 VBG O2 Sat (Calc) VBG Base Excess VBG Potassium Glucose Lactate FiO2 Sodium Potassium Chloride Carbon Dioxide Anion Gap BUN Creatinine Est GFR ( Amer) Est GFR (Non-Af Amer) POC Glucose (mg/dL) 177 H 122 H Random Glucose Calcium Phosphorus Magnesium Total Bilirubin Direct Bilirubin AST ALT Alkaline Phosphatase Total Protein Albumin Globulin Albumin/Globulin Ratio Triglycerides Cholesterol LDL Cholesterol Direct HDL Cholesterol Thyroxine (T4) TSH 3rd Generation Venous Blood Potassium 02/10/19 02/10/19 07:30 07:30 WBC 11.7 H RBC 4.96 Hgb 14.2 Hct 44.6 MCV 89.9 MCH 28.6 MCHC 31.8 RDW 14.2 Plt Count 245 MPV 8.7 Neut % (Auto) 70.2 H Lymph % (Auto) 15.2 L [place] % (Auto) 11.9 H Eos % (Auto) 2.5 Baso % (Auto) 0.2 Lymph # (Auto) 1.8 [place] # (Auto) 1.4 H Eos # (Auto) 0.3 Baso # (Auto) 0.02 Absolute Neuts (auto) 8.24 H ESR 45 H PT INR APTT pO2 VBG pH VBG pCO2 VBG HCO3 VBG Total CO2 VBG O2 Sat (Calc) VBG Base Excess VBG Potassium Glucose Lactate FiO2 Sodium 139 Potassium 4.1 Chloride 107 Carbon Dioxide 24 Anion Gap 12 BUN 13 Creatinine 0.9 Est GFR ( Amer) > 60 Est GFR (Non-Af Amer) > 60 POC Glucose (mg/dL) Random Glucose 105 Calcium 7.8 L Phosphorus 3.0 Magnesium 2.0 Total Bilirubin 0.2 Direct Bilirubin 0.2 AST 18 ALT 24 Alkaline Phosphatase 72 Total Protein 7.5 Albumin 3.4 Globulin 4.0 Albumin/Globulin Ratio 0.9 L Triglycerides Cholesterol LDL Cholesterol Direct HDL Cholesterol Thyroxine (T4) TSH 3rd Generation Venous Blood Potassium Assessment & Plan - Assessment and Plan (Free Text) Assessment: Sepsis with right lower extremity 2/2 strep probable cellulitis Tinea Pedis History of COPD Patient received 1 dose of Zosyn in the ED and vancomycin, discontinue Zosyn Continue with vancomycin and will start Rocephin Start clotmitrazoe Follow-up CT of the right lower extremity to rule out osteo Follow-up HIV and ANGLE with reflex Follow-up septic work-up Continue to monitor for any changes Case implant to be reviewed and discussed with Dr. Cesar <Jared Cesar - Last Filed: 02/10/19 16:06> Meds - Medications Medications: Current Medications Acetaminophen (Tylenol 325mg Tab) 650 mg PO Q6H PRN PRN Reason: Pain, moderate (4-7) Acetaminophen (Tylenol 325mg Tab) 650 mg PO Q6 PRN PRN Reason: TEMP>=99.5F Acetaminophen (Tylenol 650 Mg Supp) 650 mg RC Q6H PRN PRN Reason: TEMP>=99.5F Albuterol/Ipratropium (Duoneb 3 Mg/0.5 Mg (3 Ml) Ud) 3 ml IH Q2H PRN PRN Reason: Shortness of Breath Albuterol/Ipratropium (Duoneb 3 Mg/0.5 Mg (3 Ml) Ud) 3 ml IH [id number] [facility] Last Admin: 02/10/19 14:16 Dose: 3 ml Clotrimazole (Lotrimin 1%) 0 gm TOP BID [facility] Stop: 02/20/19 10:01 Last Admin: 02/10/19 11:04 Dose: 1 appl Docusate Sodium (Colace) 100 mg PO TID [facility] Last Admin: 02/10/19 15:38 Dose: 100 mg Enoxaparin Sodium (Lovenox) 40 mg SC DAILY [facility]; Protocol Last Admin: 02/10/19 11:09 Dose: 40 mg Furosemide (Lasix) 40 mg IVP DAILY [facility] Stop: 02/12/19 10:01 Last Admin: 02/10/19 11:09 Dose: 40 mg Ceftriaxone Sodium (Rocephin 2 Gm Ivpb) 2 gm in 100 mls @ 100 mls/hr IVPB DAILY [facility]; Protocol Stop: 02/19/19 10:01 Vancomycin HCl (Vancomycin 1gm) 1 gm in 250 mls @ 167 mls/hr IVPB 0600,1800 [facility]; Protocol Last Admin: 02/10/19 05:09 Dose: 167 mls/hr Nicotine (Nicoderm Cq) 1 patch TD DAILY [facility] Last Admin: 02/10/19 11:09 Dose: 1 patch Ondansetron HCl (Zofran Inj) 4 mg IVP Q4H PRN PRN Reason: Nausea/Vomiting Pantoprazole Sodium (Protonix Ec Tab) 40 mg PO 0600 [facility] Last Admin: 02/10/19 05:08 Dose: 40 mg Polyethylene Glycol (Miralax) 17 gm PO BID [facility] Last Admin: 02/10/19 11:08 Dose: 17 gm Results - Vital Signs Recent Vital Signs: Last Vital Signs Temp 99.6 F 02/10/19 13:45 Pulse 115 H 02/10/19 13:45 Resp 20 02/10/19 13:45 BP 113/77 02/10/19 13:45 Pulse Ox 94 L 02/10/19 13:45 - Labs Result Diagrams: 02/10/19 07:30 02/10/19 07:30 Labs: Laboratory Results - last 24 hr 02/09/19 02/09/19 02/09/19 16:28 16:28 16:28 WBC 14.3 H D RBC 5.05 Hgb 14.6 Hct 45.5 MCV 90.1 MCH 28.9 MCHC 32.1 RDW 14.2 Plt Count 236 MPV 8.6 Neut % (Auto) 69.8 H Lymph % (Auto) 18.3 L [place] % (Auto) 10.3 H Eos % (Auto) 1.5 Baso % (Auto) 0.1 Lymph # (Auto) 2.6 [place] # (Auto) 1.5 H Eos # (Auto) 0.2 Baso # (Auto) 0.01 Absolute Neuts (auto) 10.02 H ESR PT INR APTT pCO2 pO2 HCO3 ABG pH ABG Total CO2 ABG O2 Saturation ABG O2 Content ABG Base Excess ABG Hemoglobin ABG Carboxyhemoglobin POC ABG HHb (Measured) ABG Methemoglobin ABG O2 Capacity VBG pH VBG pCO2 VBG HCO3 VBG Total CO2 VBG O2 Sat (Calc) VBG Base Excess VBG Potassium Hgb O2 Saturation Glucose Lactate FiO2 Sodium 140 Potassium 3.9 Chloride 103 Carbon Dioxide 27 Anion Gap 14 BUN 19 Creatinine 1.1 Est GFR ( Amer) > 60 Est GFR (Non-Af Amer) > 60 POC Glucose (mg/dL) Random Glucose 107 Hemoglobin A1c Calcium 8.4 Phosphorus Magnesium Total Bilirubin 0.3 Direct Bilirubin AST 23 ALT 16 Alkaline Phosphatase 69 C-React Prot High Sens Total Protein 7.9 Albumin 3.7 Globulin 4.2 Albumin/Globulin Ratio 0.9 L Triglycerides 221 H Cholesterol 155 LDL Cholesterol Direct 69 HDL Cholesterol 40 25-OH Vitamin D Total Procalcitonin Thyroxine (T4) TSH 3rd Generation Venous Blood Potassium 02/09/19 02/09/19 02/09/19 16:28 16:28 16:28 WBC RBC Hgb Hct MCV MCH MCHC RDW Plt Count MPV Neut % (Auto) Lymph % (Auto) [place] % (Auto) Eos % (Auto) Baso % (Auto) Lymph # (Auto) [place] # (Auto) Eos # (Auto) Baso # (Auto) Absolute Neuts (auto) ESR 43 H PT INR APTT pCO2 pO2 HCO3 ABG pH ABG Total CO2 ABG O2 Saturation ABG O2 Content ABG Base Excess ABG Hemoglobin ABG Carboxyhemoglobin POC ABG HHb (Measured) ABG Methemoglobin ABG O2 Capacity VBG pH VBG pCO2 VBG HCO3 VBG Total CO2 VBG O2 Sat (Calc) VBG Base Excess VBG Potassium Hgb O2 Saturation Glucose Lactate FiO2 Sodium Potassium Chloride Carbon Dioxide Anion Gap BUN Creatinine Est GFR ( Amer) Est GFR (Non-Af Amer) POC Glucose (mg/dL) Random Glucose Hemoglobin A1c 6.2 Calcium Phosphorus Magnesium Total Bilirubin Direct Bilirubin AST ALT Alkaline Phosphatase C-React Prot High Sens > 15.00 H Total Protein Albumin Globulin Albumin/Globulin Ratio Triglycerides Cholesterol LDL Cholesterol Direct HDL Cholesterol 25-OH Vitamin D Total Procalcitonin Thyroxine (T4) 5.3 L TSH 3rd Generation 1.21 Venous Blood Potassium 02/09/19 02/09/19 02/09/19 17:55 17:58 21:18 WBC RBC Hgb Hct MCV MCH MCHC RDW Plt Count MPV Neut % (Auto) Lymph % (Auto) [place] % (Auto) Eos % (Auto) Baso % (Auto) Lymph # (Auto) [place] # (Auto) Eos # (Auto) Baso # (Auto) Absolute Neuts (auto) ESR PT 13.4 H INR 1.21 APTT 32.5 pCO2 pO2 54 HCO3 ABG pH ABG Total CO2 ABG O2 Saturation ABG O2 Content ABG Base Excess ABG Hemoglobin ABG Carboxyhemoglobin POC ABG HHb (Measured) ABG Methemoglobin ABG O2 Capacity VBG pH 7.40 VBG pCO2 42.0 VBG HCO3 26.0 VBG Total CO2 27.3 VBG O2 Sat (Calc) 92.1 H VBG Base Excess 1.0 VBG Potassium 3.5 L Hgb O2 Saturation Glucose 106 Lactate 1.2 FiO2 21.0 Sodium 137.0 Potassium Chloride 105.0 Carbon Dioxide Anion Gap BUN Creatinine Est GFR ( Amer) Est GFR (Non-Af Amer) POC Glucose (mg/dL) 177 H Random Glucose Hemoglobin A1c Calcium Phosphorus Magnesium Total Bilirubin Direct Bilirubin AST ALT Alkaline Phosphatase C-React Prot High Sens Total Protein Albumin Globulin Albumin/Globulin Ratio Triglycerides Cholesterol LDL Cholesterol Direct HDL Cholesterol 25-OH Vitamin D Total Procalcitonin Thyroxine (T4) TSH 3rd Generation Venous Blood Potassium 3.5 L 02/10/19 02/10/19 02/10/19 05:48 07:30 07:30 WBC 11.7 H RBC 4.96 Hgb 14.2 Hct 44.6 MCV 89.9 MCH 28.6 MCHC 31.8 RDW 14.2 Plt Count 245 MPV 8.7 Neut % (Auto) 70.2 H Lymph % (Auto) 15.2 L [place] % (Auto) 11.9 H Eos % (Auto) 2.5 Baso % (Auto) 0.2 Lymph # (Auto) 1.8 [place] # (Auto) 1.4 H Eos # (Auto) 0.3 Baso # (Auto) 0.02 Absolute Neuts (auto) 8.24 H ESR 45 H PT INR APTT pCO2 pO2 HCO3 ABG pH ABG Total CO2 ABG O2 Saturation ABG O2 Content ABG Base Excess ABG Hemoglobin ABG Carboxyhemoglobin POC ABG HHb (Measured) ABG Methemoglobin ABG O2 Capacity VBG pH VBG pCO2 VBG HCO3 VBG Total CO2 VBG O2 Sat (Calc) VBG Base Excess VBG Potassium Hgb O2 Saturation Glucose Lactate FiO2 Sodium Potassium Chloride Carbon Dioxide Anion Gap BUN Creatinine Est GFR ( Amer) Est GFR (Non-Af Amer) POC Glucose (mg/dL) 122 H Random Glucose Hemoglobin A1c Calcium Phosphorus Magnesium Total Bilirubin Direct Bilirubin AST ALT Alkaline Phosphatase C-React Prot High Sens Total Protein Albumin Globulin Albumin/Globulin Ratio Triglycerides Cholesterol LDL Cholesterol Direct HDL Cholesterol 25-OH Vitamin D Total Procalcitonin 0.19 Thyroxine (T4) TSH 3rd Generation Venous Blood Potassium 02/10/19 02/10/19 02/10/19 07:30 07:30 11:23 WBC RBC Hgb Hct MCV MCH MCHC RDW Plt Count MPV Neut % (Auto) Lymph % (Auto) [place] % (Auto) Eos % (Auto) Baso % (Auto) Lymph # (Auto) [place] # (Auto) Eos # (Auto) Baso # (Auto) Absolute Neuts (auto) ESR PT INR APTT pCO2 pO2 HCO3 ABG pH ABG Total CO2 ABG O2 Saturation ABG O2 Content ABG Base Excess ABG Hemoglobin ABG Carboxyhemoglobin POC ABG HHb (Measured) ABG Methemoglobin ABG O2 Capacity VBG pH VBG pCO2 VBG HCO3 VBG Total CO2 VBG O2 Sat (Calc) VBG Base Excess VBG Potassium Hgb O2 Saturation Glucose Lactate FiO2 Sodium 139 Potassium 4.1 Chloride 107 Carbon Dioxide 24 Anion Gap 12 BUN 13 Creatinine 0.9 Est GFR ( Amer) > 60 Est GFR (Non-Af Amer) > 60 POC Glucose (mg/dL) 120 H Random Glucose 105 Hemoglobin A1c Calcium 7.8 L Phosphorus 3.0 Magnesium 2.0 Total Bilirubin 0.2 Direct Bilirubin 0.2 AST 18 ALT 24 Alkaline Phosphatase 72 C-React Prot High Sens Total Protein 7.5 Albumin 3.4 Globulin 4.0 Albumin/Globulin Ratio 0.9 L Triglycerides Cholesterol LDL Cholesterol Direct HDL Cholesterol 25-OH Vitamin D Total < 12.8 L Procalcitonin Thyroxine (T4) TSH 3rd Generation Venous Blood Potassium 02/10/19 12:00 WBC RBC Hgb Hct MCV MCH MCHC RDW Plt Count MPV Neut % (Auto) Lymph % (Auto) [place] % (Auto) Eos % (Auto) Baso % (Auto) Lymph # (Auto) [place] # (Auto) Eos # (Auto) Baso # (Auto) Absolute Neuts (auto) ESR PT INR APTT pCO2 38 pO2 61.0 L HCO3 24.1 ABG pH 7.41 ABG Total CO2 25.3 ABG O2 Saturation 94.8 L ABG O2 Content 19.5 ABG Base Excess -0.3 ABG Hemoglobin 15.1 ABG Carboxyhemoglobin 2.3 H POC ABG HHb (Measured) 5.0 ABG Methemoglobin 0.8 ABG O2 Capacity 20.6 VBG pH VBG pCO2 VBG HCO3 VBG Total CO2 VBG O2 Sat (Calc) VBG Base Excess VBG Potassium Hgb O2 Saturation 91.8 L Glucose Lactate FiO2 21.0 Sodium Potassium Chloride Carbon Dioxide Anion Gap BUN Creatinine Est GFR ( Amer) Est GFR (Non-Af Amer) POC Glucose (mg/dL) Random Glucose Hemoglobin A1c Calcium Phosphorus Magnesium Total Bilirubin Direct Bilirubin AST ALT Alkaline Phosphatase C-React Prot High Sens Total Protein Albumin Globulin Albumin/Globulin Ratio Triglycerides Cholesterol LDL Cholesterol Direct HDL Cholesterol 25-OH Vitamin D Total Procalcitonin Thyroxine (T4) TSH 3rd Generation Venous Blood Potassium Attending/Attestation - Attestation I have personally seen and examined this patient.: Yes I have fully participated in the care of the patient.: Yes I have reviewed all pertinent clinical information: Yes
--- NOTE | 2019-02-10 10:41 | RAD ---
Date of service: 02/09/2019 HISTORY: STEMI COMPARISON: No prior. TECHNIQUE: 1 view obtained. FINDINGS: LUNGS: No consolidation. PLEURA: No significant pleural effusion identified, no pneumothorax apparent. CARDIOVASCULAR: No aortic atherosclerotic calcification present. Normal cardiac size. No pulmonary vascular congestion. OSSEOUS STRUCTURES: No significant abnormalities. VISUALIZED UPPER ABDOMEN: Normal. OTHER FINDINGS: None. IMPRESSION: No active disease.
[2019-02-10] MEDS: Clotrimazole 1% Cream(30 gm) TOP SCH ×2 (11:04→17:10)
[2019-02-10] MEDS: cefTRIAXone 2 GM IN NS 2 GM/100 ML BAG IVPB SCH (11:07)
[2019-02-10] MEDS: POLYETHYLENE GLYCOL 3350 17 GM/Dose PACKET PO SCH ×2 (11:08→17:14)
[2019-02-10] MEDS: Enoxaparin 40 mg Syringe SC SCH (11:09)
--- NOTE | 2019-02-10 11:26 | CT ---
PROCEDURE: SK HISTORY: attention right lower leg COMPARISON: None TECHNIQUE: ontiguous axial images of the right lower leg were obtained. Coronal and sagittal reformats were generated. This CT exam was performed using one or more of the following dose reduction techniques: Automated exposure control, adjustment of the mA and/or kV according to patient size, and/or use of iterative reconstruction technique. 96 mL of Omnipaque 350 administered. Total exam DLP: 569 (mGy-cm) FINDINGS: BONES: No cortical destruction. No periosteal reaction seen. SOFT TISSUES: There is subcutaneous reticulated edema from the inferior patellar pole spanning most of the right lower leg. This subcutaneous edema is most pronounced along the anteromedial and anterolateral aspects of the right lower leg. There is right primarily anterolateral scott fascial thin fluid like density without gas within it which has an anterior posterior dimension of 6.2 cm on axial series 3, image 73 and a depth of 5 mm. The cephalo caudal span is approximately 12 cm. The sterility of this lateral right scott fascial fluid is unknown. No gas within it is seen. No IV contrast seen within it. No intra muscular collections noted. JOINT:: No marked arthrosis. IMPRESSION: No enhancing rim to suggest a significant abscess. No periosteal reaction or cortical destruction seen to suggest osteomyelitis. No intra muscular abscesses suggested. Anteromedial and anterolateral subcutaneous edema compatible with lymphedema and/or cellulitis. Additional right anterolateral scott fascial thin fluid collection without gas and without gross peripheral enhancement the noted. Sterility of this collection is unknown. Clinical correlation follow-up advised. Concordant results (preliminary interpretation) provided by [employer].
[2019-02-10 12:02] LABS: ARTERIAL BLOOD GAS HCO3 24.1 mmol/L (21-28); ARTERIAL BLOOD GAS HEMOGLOBIN 15.1 g/dL (11.7-17.4); ARTERIAL BLOOD GAS O2 CAPACITY 20.6 mL/dl (16-24); ARTERIAL BLOOD GAS O2 CONTENT 19.5 ML/dl (15-23); ARTERIAL BLOOD GAS O2 SAT 94.8 % (95-98); ARTERIAL BLOOD GAS PCO2 38 mm/Hg (35-45); ARTERIAL BLOOD GAS PH 7.41 (7.35-7.45); ARTERIAL BLOOD GAS TCO2 25.3 mmol.L (22-28)
--- NOTE | 2019-02-10 12:06 | PN ---
DATE: 02/10/2019 SUBJECTIVE: The patient is seen lying in the bed in room 575, bed 2. Overnight nurse's notes were reviewed. No adverse events were documented. PHYSICAL EXAMINATION GENERAL: Text. VITAL SIGNS: T-max 98.9, heart rate 88 to 100, blood pressure 124/74, respirations 20, O2 sat 96%. HEENT: Head is normocephalic, atraumatic. HEENT examination shows pink conjunctivae. Anicteric sclerae. No oropharyngeal lesion. NECK: No neck rigidity CHEST: Kyphosis. Positive rhonchi and wheezing noted, which is decreased since yesterday. CARDIOVASCULAR: S1, S2, regular rhythm. ABDOMEN: Soft, positive bowel sound. GENITALIA: Male. RECTAL: Deferred. EXTREMITIES: Shows positive right lower extremity scab right lower extremity tenderness and warm to touch and positive swelling of the right lower extremity. MUSCULOSKELETAL: Shows a body mass index of 29. NEUROLOGIC: The patient is alert, awake, responsive, is able to move upper and lower extremity without assistance. Gait examination not tested. VASCULAR: Palpable pulses. DIAGNOSTIC DATA: WBC count is down to 11.7 from 14.3, granulocytes 70.2. Sodium 139, potassium 4.1, chloride 107, CO2 24, anion gap 12, BUN 13, creatinine 0.9, GFR is greater than 60, glucose 105, calcium 7.8, phosphorus 3.0, magnesium 2.0. LFTs are normal. Triglyceride 221, cholesterol 155, LDL 69. TSH is 1.21. IMPRESSION: 1. Right leg and lower leg cellulitis with diffuse subcutaneous soft tissue swelling. 2. History of asthma and emphysema. 3. Nicotine dependence. 4. Leukocytosis with granulocytosis. 5. Elevated erythrocyte sedimentation rate. 6. Hypertriglyceridemia. 7. Obesity with elevated body mass index of 29. 8. History of chronic obstructive pulmonary disease and asthma. 9. History of nicotine dependence. PLAN: At this time, the patient has been ordered C-reactive protein, thyroid panel, hemoglobin A1c. CMP, LFT, magnesium, phosphorus has been ordered. Vitamin D has been ordered. The patient has been seen by Infectious Disease, HIV ordered. ESR ordered. Repeat CBC ordered. Blood cultures have been ordered. Current consultation, Infectious Disease. Procalcitonin level has been ordered. CURRENT MEDICATIONS: Colace 100 mg three times a day, DuoNeb nebulizer every 6 hours [id number] and every 2 hours p.r.n. IV fluid has been stopped. The patient has ordered Lasix 40 mg IV daily x3 days, Lovenox 40 mg subcutaneously daily, MiraLax 17 g twice a day, nicotine patch 21 mg daily, Protonix 40 mg daily, Rocephin 2 g IV daily ordered by Infectious Disease, Tylenol 650 mg p.o. suppository every 6 hours . p.r.n. The patient received vancomycin 1 g IV every 12 hours ordered by Infectious Disease. The patient received Zosyn in the emergency room 3.375 g. Venous Doppler of both lower extremity has been ordered. CT of the chest has been ordered for evaluation of COPD and wheezing, incentive spirometry, oxygen 2 liters nasal cannula has been ordered. SCDs, elevation of the affected legs has been ordered, out of bed, physical therapy, occupational therapy has been ordered. The patient's further medical management will be dependent upon the patient's clinical condition, hemodynamic status and as per the patient response to therapeutic intervention, as per the patient's diagnostic test results and as per recommendation by all the physicians involved in the care of the patient. The patient has been updated about his condition, diagnosis, test results, recommendation at length and all questions concerned answered which he acknowledged and understand. At present, the patient's further management will be dependent upon the patient's clinical condition, hemodynamic status and as per the patient response to therapeutic intervention, as per the patient's diagnostic test results and as per recommendation by all the physicians involved in the care of the patient. We will review the final report of the CT of the chest and CT of the right leg and venous Doppler and make further recommendations. Dictated and electronically signed, not read. Tay Wei MD
[2019-02-11] MEDS: Albuterol-Ipratrop 3 mg / 0.5 (3 ml) UD IH SCH ×2 (01:50→07:19)
[2019-02-11] MEDS: Pantoprazole 40 mg EC Tab PO SCH (05:43)
[2019-02-11] MEDS: Vancomycin 1gm in NS 250ml 1 GM/250 ML BAG IVPB SCH ×2 (05:43→18:19)
[2019-02-11] MEDS ORDERED: Ergocalciferol 50,000 Intl Units Cap PO SCH (06:30)
[2019-02-11 07:13] LABS: BASO # 0.02 K/mm3 (0.0-2.0); BASO % 0.2 % (0.0-3.0); EOS # 0.4 (0.0-0.7); LYMPH # 1.5 (1.2-3.4); LYMPH % 17.1 % (22.0-35.0); MEAN CELL VOLUME 89.4 fl (80.0-105.0); MEAN CORPUSCULAR HGB CONC 32.5 g/dl (31.0-37.0); MEAN PLATELET VOLUME 8.6 fl (7.0-11.0); MONO # 1.5 (0.1-0.6); MONO % 16.7 % (1.0-6.0); RBC 5.17 10^6/uL (3.5-6.1); RED CELL DISTRIBUTION WIDTH 13.9 % (11.5-14.5); WHITE BLOOD COUNT 8.7 10^3/uL (4.5-11.0)
[2019-02-11 07:27] LABS: ALB/GLOB RATIO 0.8 (1.1-1.8); ALBUMIN 3.6 g/dL (3.0-4.8); ALT/SGPT 22 U/L (7-56); AST/SGOT 20 U/L (17-59); BILIRUBIN,DIRECT 0.3 mg/dL (0.0-0.4); BLOOD UREA NITROGEN 18 mg/dL (7-21); CALCIUM 8.1 mg/dL (8.4-10.5); GFR NON-AFRICAN AMERICAN > 60
[2019-02-11] MEDS: Enoxaparin 40 mg Syringe SC SCH (09:32)
[2019-02-11] MEDS: POLYETHYLENE GLYCOL 3350 17 GM/Dose PACKET PO SCH ×2 (09:32→18:11)
[2019-02-11] MEDS: cefTRIAXone 2 GM IN NS 2 GM/100 ML BAG IVPB SCH (09:33)
[2019-02-11] MEDS: Clotrimazole 1% Cream(30 gm) TOP SCH ×2 (09:39→18:11)
[2019-02-11] MEDS ORDERED: Iohexol 350 MG/100 ML VIAL ONE (10:18)
--- NOTE | 2019-02-11 11:11 | CT ---
Date of service: 02/11/2019 PROCEDURE: CT Chest with contrast (Pulmonary Angiogram) HISTORY: HYPOXEMIA/ELEVATED DIMER COMPARISON: None available. TECHNIQUE: Axial computed tomography images were obtained of the chest in the pulmonary arterial phase of enhancement. Coronal and sagittal reformatted images were created and reviewed. Intravenous contrast dose: 100 cc of Omni 350 Radiation dose: Total exam DLP = 414.45 mGy-cm. This CT exam was performed using one or more of the following dose reduction techniques: Automated exposure control, adjustment of the mA and/or kV according to patient size, and/or use of iterative reconstruction technique. FINDINGS: PULMONARY ARTERIES: Unremarkable. No pulmonary embolism. AORTA: No acute findings. No thoracic aortic aneurysm. No aortic atherosclerotic calcification or mural plaque present. LUNGS: Unremarkable. No nodule, mass or pulmonary consolidation. PLEURAL SPACES: Unremarkable. No effusion or pneumothorax. HEART: Unremarkable. No cardiomegaly. No significant pericardial effusion. LYMPH NODES: No lymphadenopathy. BONES, CHEST WALL: Unremarkable. No fracture or destructive lesion OTHER FINDINGS: Unremarkable. IMPRESSION: Unremarkable CT pulmonary angiogram. No pulmonary embolus.
[2019-02-11] MEDS: Levalbuterol 1.25 MG/3 ML Inhal Soln UD IH SCH ×2 (11:38→20:44)
--- NOTE | 2019-02-11 13:27 | PN ---
DATE: 02/11/2019 SUBJECTIVE: The patient is seen lying in the bed in room 575 bed 2. The patient is awake, responsive. The patient does complain of some shortness of breath and wheezing. PHYSICAL EXAMINATION: VITAL SIGNS: T-max in the last 24 to 48 hours 100.3, down to 99.9, down to 99.6, heart rate 107, 115, 100 105, blood pressure 121/72, respirations 20, O2 sat 98%. HEENT: Head examination normocephalic, atraumatic. HEENT examination shows pink conjunctivae. Anicteric sclerae. Dry oral mucosa. No neck rigidity. CHEST: Kyphosis. LUNGS: Examination shows positive rhonchi and wheezing bilaterally. CARDIOVASCULAR: S1, S2, tachycardic rhythm. ABDOMEN: Obese, positive bowel sounds. No palpable hepatosplenomegaly. GENITALIA: Male. RECTAL: Examination is deferred. EXTREMITY: Lower extremities still shows some anterior right leg erythema and reddish patches with pitting edema and right calf tenderness noted and swelling of the right lower extremity persistent. MUSCULOSKELETAL: Examination shows a body mass index of 29. NEUROLOGIC: The patient is alert, awake, responsive, is able to move upper and lower extremity without assistance. Gait examination is not tested. DIAGNOSTICS: 02/11/2019, WBC count is down to 8.7 from 14.3, hemoglobin and hematocrit 15 and 46.2, platelet 472, granulocytes normal. ESR is 43 and 45. D-dimer today is 324 with a normal cutoff is 243. ABG yesterday on room air pH of 7.41, pCO2 of 38, pO2 of 61, bicarb 24, saturation of 94.8%. Sodium 142, potassium 4, chloride 107, CO2 of 27, anion gap 12, BUN 18, creatinine 0.8, GFR greater than 60, glucose 120, calcium 8.1, hemoglobin A1c 6.2 which is the prediabetic trend. LFTs are within normal limit. Procalcitonin level is 0.19. Vitamin D 25-hydroxy less than 12.8. C-reactive protein is greater than 160 and greater than 15. Blood cultures, no growth so far. The patient's venous Doppler, plane CT chest, CT of the lower extremity all were reviewed. EKG were reviewed. IMPRESSION: 1. Acute right lower extremity probable Streptococcus cellulitis and sepsis with tenia pedis. 2. Acute exacerbation of chronic obstructive pulmonary disease and asthmatic bronchitis with wheezing. 3. Sinus tachycardia and resting tachycardia. 4. Hypoxemia. 5. Leukocytosis with granulocytosis. 6. Erythrocyte sedimentation rate of greater than 43 and 45. 7. Elevated D-dimer of 324. 8. Elevated C-reactive protein of greater than 15 and greater than 160. 9. Hypertriglyceridemia. 10. Prediabetes with hemoglobin A1c of 6.2. 11. Hypovitaminosis D. 12. Bibasilar peribronchial thickening and ground-glass opacities, questionable bibasilar pneumonia. 13. Obesity with elevated body mass index of 29. 14. Nonspecific T-wave abnormality on the EKG. 15. History of nicotine dependence. 16. Right lower extremity cellulitis with subcutaneous reticulated edema extending from the inferior lateral pole and the right posterior leg with subcutaneous edema, more pronounced along the anteromedial and anterolateral aspect of the right leg with anterolateral perifacial and fluid-like density. 17. Anteromedial and anterolateral subcutaneous edema compatible with lymphedema or cellulitis with right leg anterolateral perifacial thin fluid collection. 18. Elevated D-dimer, etiology undetermined. PLAN: At this time, the patient has been ordered repeat labs.. The patient has been ordered fructosamine. Surgery consultation has been requested. Infectious Disease consultation already involved. CURRENT MEDICATIONS: Colace 100 mg three times a day, Drisdol 50,000 units weekly, DuoNeb nebulizer every 6 hours [id number] which will be stopped because of tachycardia. The patient will be started on Xopenex nebulizer 0.63 mg or 1.25 mg. The patient will be started on Xopenex nebulizer 1.26 mg every 6 hours respiratory schedule. DuoNeb will be stopped. The patient will be started on Xopenex nebulizer 1.25 mg every 6 hours, but the patient will be continued on DuoNeb nebulizer every 2 hours p.r.n. for shortness of breath. The patient is on Lasix 40 mg IV daily for the whole day. The patient will be continued on Lasix 40 mg IV daily until complete resolution of the right leg swelling. The patient is on Lotrimin cream, Lovenox 40 mg subcu daily for DVT prophylaxis, MiraLax 17 g twice a day, nicotine patch 21 mg daily, Protonix 40 mg daily, Rocephin 2 g IV daily. The patient is started on Solu-Medrol, the patient is given a stat dose of Solu-Medrol 125 now and Solu-Medrol 40 mg IV every 8 hours, Tylenol p.r.n., vancomycin 1 g IV every 12 hours, Xopenex nebulizer 0.6/1.25 mg every 6 hours, Zofran 4 mg IV every 4 hours. The patient has been ordered out of bed to chair, CARIDAD stockings, SCDs, echo with Doppler has been ordered, head of the bed at 35 to 40 degrees. The patient has been updated about his condition, diagnosis, test results at length, and all questions concerned answered which he acknowledged and understand. The patient's CT angio chest is now available, which was done for evaluation of elevated D-dimer, hypoxemia and tachycardia. CT angiogram is negative for pulmonary embolism and there is no pulmonary embolism noted. Dictated and electronically signed, not read. Tay Wei MD
[2019-02-11] MEDS: MethylPREDNISolone 40 mg Vial IVP SCH ×2 (14:38→22:01)
--- NOTE | 2019-02-11 16:27 | CP.PCM.CON ---
<Timothy Stewart - Last Filed: 02/11/19 16:17> History of Present Illness - History of Present Illness History of Present Illness: General Surgery: Dr Guadalupe CC: RLE cellulitis Pt is a 44M w/ PMH asthma. He presented to the ED on 02/09/19 for RLE swelling and pain. Evidently this all started on 02/07/19 as a small lesion that appeared like it could have been an insect bite, though he never felt anything and incurred no trauma. Pt reports the pain has gotten progressively worse and accompanied by a spreading of the erythema since then which prompted his visit to the ED. PT also reports he was having subjective fevers and chills as well. Denies any sob, chest pain, nausea or vomiting, muscle weakness, or abdominal pain. 12 point ROS performed and negative except otherwise stated PMH: asthma PSH: denies Meds: albuterol NKDA smokes 1 ppd x 10 years Review of Systems - Review of Systems All systems: reviewed and no additional remarkable complaints except (as per hpi) Past Patient History - Infectious Disease Hx of Infectious Diseases: None - Past Social History Smoking Status: Current Some Days Smoker - CARDIAC Hx Cardiac Disorders: No - PULMONARY Hx Respiratory Disorders: Yes Hx Asthma: Yes Hx Chronic Obstructive Pulmonary Disease (COPD): Yes - NEUROLOGICAL Hx Neurological Disorder: No - HEENT Hx HEENT Problems: No - RENAL Hx Chronic Kidney Disease: No - ENDOCRINE/METABOLIC Hx Endocrine Disorders: No - HEMATOLOGICAL/ONCOLOGICAL Hx Blood Disorders: No - INTEGUMENTARY Hx Dermatological Problems: Yes Other/Comment: 02-09-19 RIGHT BOOTH BONE WITH DEEP BURGUNDY COLORED SKIN.EDEMA +2 ERYTHEMA PAIN. LEG CELLULITIS. - MUSCULOSKELETAL/RHEUMATOLOGICAL Hx Musculoskeletal Disorders: No Hx Falls: No - GASTROINTESTINAL Hx Gastrointestinal Disorders: No - GENITOURINARY/GYNECOLOGICAL Hx Genitourinary Disorders: No - PSYCHIATRIC Hx Psychophysiologic Disorder: No Hx Substance Use: No - SURGICAL HISTORY Hx Surgeries: No - ANESTHESIA Hx Anesthesia: No Meds Allergies/Adverse Reactions: Allergies Allergy/AdvReac Type Severity Reaction Status Date / Time No Known Allergies Allergy Verified 02/09/19 20:51 - Medications Medications: Current Medications Acetaminophen (Tylenol 325mg Tab) 650 mg PO Q6H PRN PRN Reason: Pain, moderate (4-7) Acetaminophen (Tylenol 325mg Tab) 650 mg PO Q6 PRN PRN Reason: TEMP>=99.5F Acetaminophen (Tylenol 650 Mg Supp) 650 mg RC Q6H PRN PRN Reason: TEMP>=99.5F Albuterol/Ipratropium (Duoneb 3 Mg/0.5 Mg (3 Ml) Ud) 3 ml IH Q2H PRN PRN Reason: Shortness of Breath Clotrimazole (Lotrimin 1%) 0 gm TOP BID [facility] Stop: 02/20/19 10:01 Last Admin: 02/11/19 09:39 Dose: 1 appl Docusate Sodium (Colace) 100 mg PO TID [facility] Last Admin: 02/11/19 14:36 Dose: Not Given Enoxaparin Sodium (Lovenox) 40 mg SC DAILY [facility]; Protocol Last Admin: 02/11/19 09:32 Dose: 40 mg Ergocalciferol (Drisdol 50,000 Intl Units Cap) 1 cap PO Q7D [facility] Last Admin: 02/11/19 08:18 Dose: 1 cap Furosemide (Lasix) 40 mg IVP DAILY [facility] Stop: 02/12/19 10:01 Last Admin: 02/11/19 09:32 Dose: 40 mg Furosemide (Lasix) 40 mg IVP DAILY [facility] Ceftriaxone Sodium (Rocephin 2 Gm Ivpb) 2 gm in 100 mls @ 100 mls/hr IVPB DAILY [facility]; Protocol Stop: 02/19/19 10:01 Last Admin: 02/11/19 09:33 Dose: 100 mls/hr Vancomycin HCl (Vancomycin 1gm) 1 gm in 250 mls @ 167 mls/hr IVPB 0600,1800 [facility]; Protocol Last Admin: 02/11/19 05:43 Dose: 167 mls/hr Levalbuterol HCl (Xopenex) 1.25 mg IH [id number] [facility] Last Admin: 02/11/19 11:38 Dose: 1.25 mg Methylprednisolone (Solu-Medrol) 40 mg IVP Q8H [facility] Last Admin: 02/11/19 14:38 Dose: Not Given Nicotine (Nicoderm Cq) 1 patch TD DAILY [facility] Last Admin: 02/11/19 09:33 Dose: 1 patch Ondansetron HCl (Zofran Inj) 4 mg IVP Q4H PRN PRN Reason: Nausea/Vomiting Pantoprazole Sodium (Protonix Ec Tab) 40 mg PO 0600 [facility] Last Admin: 02/11/19 05:43 Dose: 40 mg Polyethylene Glycol (Miralax) 17 gm PO BID [facility] Last Admin: 02/11/19 09:32 Dose: Not Given Physical Exam - Constitutional Appears: Non-toxic, No Acute Distress - Head Exam Head Exam: NORMAL INSPECTION - Eye Exam Eye Exam: Normal appearance - ENT Exam ENT Exam: Mucous Membranes Moist - Respiratory Exam Respiratory Exam: absent: Accessory Muscle Use, Respiratory Distress - Cardiovascular Exam Cardiovascular Exam: REGULAR RHYTHM. absent: Tachycardia - GI/Abdominal Exam GI & Abdominal Exam: Soft. absent: Tenderness - Rectal Exam Rectal Exam: absent: Deferred - Extremities Exam Additional comments: RLE with anterior tibial erythema and cellulitis no noted fluctuance or abscess - Neurological Exam Neurological exam: Alert, Oriented x3 - Psychiatric Exam Psychiatric exam: Normal Affect, Normal Mood - Skin Skin Exam: Normal Color, Warm Results - Vital Signs Recent Vital Signs: Last Vital Signs Temp 98.6 F 02/10/19 23:06 Pulse 107 H 02/10/19 23:06 Resp 20 02/10/19 23:06 BP 121/72 02/11/19 09:32 Pulse Ox 98 02/10/19 23:06 - Labs Result Diagrams: 02/11/19 07:00 02/11/19 07:00 Labs: Laboratory Results - last 24 hr 02/10/19 02/10/19 02/10/19 07:00 07:30 16:20 WBC RBC Hgb Hct MCV MCH MCHC RDW Plt Count MPV Neut % (Auto) Lymph % (Auto) Cache % (Auto) Eos % (Auto) Baso % (Auto) Lymph # (Auto) Cache # (Auto) Eos # (Auto) Baso # (Auto) Absolute Neuts (auto) D-Dimer, Quantitative Sodium Potassium Chloride Carbon Dioxide Anion Gap BUN Creatinine Est GFR ( Amer) Est GFR (Non-Af Amer) POC Glucose (mg/dL) 98 Random Glucose Calcium Phosphorus Magnesium Total Bilirubin Direct Bilirubin AST ALT Alkaline Phosphatase C-Reactive Protein 160.00 H Total Protein Albumin Globulin Albumin/Globulin Ratio HIV 1&2 Ag/Ab, 4th Gen Nonreactive 02/11/19 02/11/19 02/11/19 07:00 07:00 09:10 WBC 8.7 D RBC 5.17 Hgb 15.0 Hct 46.2 MCV 89.4 MCH 29.0 MCHC 32.5 RDW 13.9 Plt Count 272 MPV 8.6 Neut % (Auto) 62.0 Lymph % (Auto) 17.1 L Cache % (Auto) 16.7 H Eos % (Auto) 4.0 Baso % (Auto) 0.2 Lymph # (Auto) 1.5 Cache # (Auto) 1.5 H Eos # (Auto) 0.4 Baso # (Auto) 0.02 Absolute Neuts (auto) 5.40 D-Dimer, Quantitative 324 H Sodium 142 Potassium 4.0 Chloride 107 Carbon Dioxide 27 Anion Gap 12 BUN 18 Creatinine 0.8 Est GFR ( Amer) > 60 Est GFR (Non-Af Amer) > 60 POC Glucose (mg/dL) Random Glucose 120 H Calcium 8.1 L Phosphorus 3.3 Magnesium 2.2 Total Bilirubin 0.3 Direct Bilirubin 0.3 AST 20 ALT 22 Alkaline Phosphatase 65 C-Reactive Protein Total Protein 8.0 Albumin 3.6 Globulin 4.4 Albumin/Globulin Ratio 0.8 L HIV 1&2 Ag/Ab, 4th Gen Assessment & Plan - Assessment and Plan (Free Text) Assessment: 44M with RLE cellulitis Plan: cont abx as per ID consult no drainable abscess noted no surgical intervention planned will cont to monitor wound d/w Dr Anayeli Stewart, PGY4 <Lázaro Guadalupe - Last Filed: 02/12/19 07:29> Meds - Medications Medications: Current Medications Acetaminophen (Tylenol 325mg Tab) 650 mg PO Q6H PRN PRN Reason: Pain, moderate (4-7) Acetaminophen (Tylenol 325mg Tab) 650 mg PO Q6 PRN PRN Reason: TEMP>=99.5F Acetaminophen (Tylenol 650 Mg Supp) 650 mg RC Q6H PRN PRN Reason: TEMP>=99.5F Albuterol/Ipratropium (Duoneb 3 Mg/0.5 Mg (3 Ml) Ud) 3 ml IH Q2H PRN PRN Reason: Shortness of Breath Clotrimazole (Lotrimin 1%) 0 gm TOP BID [facility] Stop: 02/20/19 10:01 Last Admin: 02/11/19 18:11 Dose: 1 appl Docusate Sodium (Colace) 100 mg PO TID [facility] Last Admin: 02/11/19 18:11 Dose: Not Given Enoxaparin Sodium (Lovenox) 40 mg SC DAILY [facility]; Protocol Last Admin: 02/11/19 09:32 Dose: 40 mg Ergocalciferol (Drisdol 50,000 Intl Units Cap) 1 cap PO Q7D [facility] Last Admin: 02/11/19 08:18 Dose: 1 cap Furosemide (Lasix) 40 mg IVP DAILY [facility] Stop: 02/12/19 10:01 Last Admin: 02/11/19 09:32 Dose: 40 mg Furosemide (Lasix) 40 mg IVP DAILY [facility] Ceftriaxone Sodium (Rocephin 2 Gm Ivpb) 2 gm in 100 mls @ 100 mls/hr IVPB DAILY [facility]; Protocol Stop: 02/19/19 10:01 Last Admin: 02/11/19 09:33 Dose: 100 mls/hr Vancomycin HCl (Vancomycin 1gm) 1 gm in 250 mls @ 167 mls/hr IVPB 0600,1800 [facility]; Protocol Last Admin: 02/12/19 05:57 Dose: 167 mls/hr Levalbuterol HCl (Xopenex) 1.25 mg IH [id number] [facility] Last Admin: 02/12/19 07:15 Dose: 1.25 mg Methylprednisolone (Solu-Medrol) 40 mg IVP Q8H [facility] Last Admin: 02/11/19 22:01 Dose: 40 mg Nicotine (Nicoderm Cq) 1 patch TD DAILY [facility] Last Admin: 02/11/19 09:33 Dose: 1 patch Ondansetron HCl (Zofran Inj) 4 mg IVP Q4H PRN PRN Reason: Nausea/Vomiting Pantoprazole Sodium (Protonix Ec Tab) 40 mg PO 0600 [facility] Last Admin: 02/12/19 05:54 Dose: 40 mg Polyethylene Glycol (Miralax) 17 gm PO BID [facility] Last Admin: 02/11/19 18:11 Dose: Not Given Results - Vital Signs Recent Vital Signs: Last Vital Signs Temp 98.5 F 02/11/19 22:00 Pulse 100 H 02/11/19 22:00 Resp 18 02/11/19 22:00 BP 148/95 H 02/11/19 22:00 Pulse Ox 95 02/11/19 22:00 - Labs Result Diagrams: 02/11/19 07:00 02/11/19 07:00 Labs: Laboratory Results - last 24 hr 02/10/19 02/11/19 07:30 09:10 D-Dimer, Quantitative 324 H HIV 1&2 Ag/Ab, 4th Gen Nonreactive Assessment & Plan - Assessment and Plan (Free Text) Plan: Patient was seen, evaluated and examined by me at the bedside. I agree with assessment and plan as stated in the resident's note.
--- NOTE | 2019-02-11 16:56 | CP.PCM.PN ---
<Tomas Gunn - Last Filed: 02/11/19 16:57> Subjective - Date & Time of Evaluation Date of Evaluation: 02/11/19 Time of Evaluation: 09:40 - Subjective Subjective: Infectious disease progress note: Patient seen and examined at bedside. No acute events overnight. Patient complains of lower extremity pain2/2 cellulites . no fevers. No other complaints. 12 point ROS performed and negative unless stated above. Objective - Vital Signs/Intake and Output Vital Signs (last 24 hours): Temp Pulse Resp BP Pulse Ox 98.6 F 107 H 20 121/72 98 02/10/19 23:06 02/10/19 23:06 02/10/19 23:06 02/11/19 09:32 02/10/19 23:06 Intake and Output: 02/11/19 02/11/19 06:59 18:59 Intake Total 960 720 Balance 960 720 - Medications Medications: Current Medications Acetaminophen (Tylenol 325mg Tab) 650 mg PO Q6H PRN PRN Reason: Pain, moderate (4-7) Acetaminophen (Tylenol 325mg Tab) 650 mg PO Q6 PRN PRN Reason: TEMP>=99.5F Acetaminophen (Tylenol 650 Mg Supp) 650 mg RC Q6H PRN PRN Reason: TEMP>=99.5F Albuterol/Ipratropium (Duoneb 3 Mg/0.5 Mg (3 Ml) Ud) 3 ml IH Q2H PRN PRN Reason: Shortness of Breath Clotrimazole (Lotrimin 1%) 0 gm TOP BID [facility] Stop: 02/20/19 10:01 Last Admin: 02/11/19 09:39 Dose: 1 appl Docusate Sodium (Colace) 100 mg PO TID [facility] Last Admin: 02/11/19 14:36 Dose: Not Given Enoxaparin Sodium (Lovenox) 40 mg SC DAILY [facility]; Protocol Last Admin: 02/11/19 09:32 Dose: 40 mg Ergocalciferol (Drisdol 50,000 Intl Units Cap) 1 cap PO Q7D [facility] Last Admin: 02/11/19 08:18 Dose: 1 cap Furosemide (Lasix) 40 mg IVP DAILY [facility] Stop: 02/12/19 10:01 Last Admin: 02/11/19 09:32 Dose: 40 mg Furosemide (Lasix) 40 mg IVP DAILY [facility] Ceftriaxone Sodium (Rocephin 2 Gm Ivpb) 2 gm in 100 mls @ 100 mls/hr IVPB DAILY [facility]; Protocol Stop: 02/19/19 10:01 Last Admin: 02/11/19 09:33 Dose: 100 mls/hr Vancomycin HCl (Vancomycin 1gm) 1 gm in 250 mls @ 167 mls/hr IVPB 0600,1800 [facility]; Protocol Last Admin: 02/11/19 05:43 Dose: 167 mls/hr Levalbuterol HCl (Xopenex) 1.25 mg IH [id number] [facility] Last Admin: 02/11/19 11:38 Dose: 1.25 mg Methylprednisolone (Solu-Medrol) 40 mg IVP Q8H [facility] Last Admin: 02/11/19 14:38 Dose: Not Given Nicotine (Nicoderm Cq) 1 patch TD DAILY [facility] Last Admin: 02/11/19 09:33 Dose: 1 patch Ondansetron HCl (Zofran Inj) 4 mg IVP Q4H PRN PRN Reason: Nausea/Vomiting Pantoprazole Sodium (Protonix Ec Tab) 40 mg PO 0600 [facility] Last Admin: 02/11/19 05:43 Dose: 40 mg Polyethylene Glycol (Miralax) 17 gm PO BID [facility] Last Admin: 02/11/19 09:32 Dose: Not Given - Labs Labs: 02/11/19 07:00 02/11/19 07:00 PT 13.4 SECONDS (9.4-12.5) H 02/09/19 17:58 INR 1.21 02/09/19 17:58 APTT 32.5 Seconds (26.9-38.3) 02/09/19 17:58 - Constitutional Appears: No Acute Distress - Head Exam Head Exam: ATRAUMATIC, NORMOCEPHALIC - Eye Exam Eye Exam: EOMI - ENT Exam ENT Exam: Mucous Membranes Moist - Respiratory Exam Respiratory Exam: Clear to Ausculation Bilateral. absent: Wheezes - Cardiovascular Exam Cardiovascular Exam: REGULAR RHYTHM, +S1, +S2 - GI/Abdominal Exam GI & Abdominal Exam: Soft. absent: Tenderness - Extremities Exam Extremities Exam: absent: Calf Tenderness, Pedal Edema - Neurological Exam Neurological Exam: Alert, Awake - Psychiatric Exam Psychiatric exam: Normal Mood - Skin Skin Exam: Dry, Warm Additional comments: RLE erythema, edema and warm to touch Assessment and Plan - Assessment and Plan (Free Text) Assessment: Sepsis with right lower extremity 2/2 strep probable cellulitis Tinea Pedis History of COPD Continue with vancomycin and will start Rocephin, upon discharge can d/c with Augmentin 875mg BID and Doxy 100 BID for 5-7 days Cont clotmitrazoe for athletes foot Follow-up CT of the right lower extremity - no osteo Follow-up septic work-up, HIV is neg Continue to monitor for any changes Case implant to be reviewed and discussed with Dr. Cesar <Jared Cesar - Last Filed: 02/11/19 18:03> Objective - Vital Signs/Intake and Output Vital Signs (last 24 hours): Temp Pulse Resp BP Pulse Ox 98.6 F 107 H 20 121/72 98 02/10/19 23:06 02/10/19 23:06 02/10/19 23:06 02/11/19 09:32 02/10/19 23:06 Intake and Output: 02/11/19 02/11/19 06:59 18:59 Intake Total 960 720 Balance 960 720 - Medications Medications: Current Medications Acetaminophen (Tylenol 325mg Tab) 650 mg PO Q6H PRN PRN Reason: Pain, moderate (4-7) Acetaminophen (Tylenol 325mg Tab) 650 mg PO Q6 PRN PRN Reason: TEMP>=99.5F Acetaminophen (Tylenol 650 Mg Supp) 650 mg RC Q6H PRN PRN Reason: TEMP>=99.5F Albuterol/Ipratropium (Duoneb 3 Mg/0.5 Mg (3 Ml) Ud) 3 ml IH Q2H PRN PRN Reason: Shortness of Breath Clotrimazole (Lotrimin 1%) 0 gm TOP BID [facility] Stop: 02/20/19 10:01 Last Admin: 02/11/19 09:39 Dose: 1 appl Docusate Sodium (Colace) 100 mg PO TID [facility] Last Admin: 02/11/19 14:36 Dose: Not Given Enoxaparin Sodium (Lovenox) 40 mg SC DAILY [facility]; Protocol Last Admin: 02/11/19 09:32 Dose: 40 mg Ergocalciferol (Drisdol 50,000 Intl Units Cap) 1 cap PO Q7D [facility] Last Admin: 02/11/19 08:18 Dose: 1 cap Furosemide (Lasix) 40 mg IVP DAILY [facility] Stop: 02/12/19 10:01 Last Admin: 02/11/19 09:32 Dose: 40 mg Furosemide (Lasix) 40 mg IVP DAILY [facility] Ceftriaxone Sodium (Rocephin 2 Gm Ivpb) 2 gm in 100 mls @ 100 mls/hr IVPB DAILY [facility]; Protocol Stop: 02/19/19 10:01 Last Admin: 02/11/19 09:33 Dose: 100 mls/hr Vancomycin HCl (Vancomycin 1gm) 1 gm in 250 mls @ 167 mls/hr IVPB 0600,1800 [facility]; Protocol Last Admin: 02/11/19 05:43 Dose: 167 mls/hr Levalbuterol HCl (Xopenex) 1.25 mg IH [id number] [facility] Last Admin: 02/11/19 11:38 Dose: 1.25 mg Methylprednisolone (Solu-Medrol) 40 mg IVP Q8H [facility] Last Admin: 02/11/19 14:38 Dose: Not Given Nicotine (Nicoderm Cq) 1 patch TD DAILY [facility] Last Admin: 02/11/19 09:33 Dose: 1 patch Ondansetron HCl (Zofran Inj) 4 mg IVP Q4H PRN PRN Reason: Nausea/Vomiting Pantoprazole Sodium (Protonix Ec Tab) 40 mg PO 0600 [facility] Last Admin: 02/11/19 05:43 Dose: 40 mg Polyethylene Glycol (Miralax) 17 gm PO BID [facility] Last Admin: 02/11/19 09:32 Dose: Not Given - Labs Labs: 02/11/19 07:00 02/11/19 07:00 PT 13.4 SECONDS (9.4-12.5) H 02/09/19 17:58 INR 1.21 02/09/19 17:58 APTT 32.5 Seconds (26.9-38.3) 02/09/19 17:58 Attending/Attestation - Attestation I have personally seen and examined this patient.: Yes I have fully participated in the care of the patient.: Yes I have reviewed all pertinent clinical information, including history, physical exam and plan: Yes
--- NOTE | 2019-02-11 18:04 | CARD ---
APPROVED REPORT Date of service: 02/11/2019 EXAM: Two-dimensional and M-mode echocardiogram with Doppler and color Doppler. INDICATION R/O PH 2D DIMENSIONS Left Atrium (2D)3.1 (1.6-4.0cm)IVSd1.0 (0.7-1.1cm) LVDd4.3 (3.9-5.9cm)PWd1.1 (0.7-1.1cm) LVDs3.1 (2.5-4.0cm)FS (%) 28.8 % LVEF (%)55.7 (>50%) M-Mode DIMENSIONS Aortic Root3.00 (2.2-3.7cm)Aortic Cusp Exc.1.60 (1.5-2.0cm) Aortic Valve AoV Peak Dljzbfxk213.0cm/Navya Peak GR.10mmHg Mitral Valve MV E Lcpptmhd77.0cm/sMV A Jjuvzieu93.5cm/sE/A ratio1.0 TDI Lateral E' Peak V12.90cm/sMedial E' Peak V8.38cm/sE/Lateral E'5.8 E/Medial E'8.9 Pulmonary Valve PV Peak Chsmfkhr20.3cm/sPV Peak Grad.3mmHg Tricuspid Valve TR Peak Hsfkiajh563zk/sRAP DCENVEHB92yhGyQC Peak Gr.10mmHg [id number] LEFT VENTRICLE The left ventricle is normal size. There is normal left ventricular wall thickness. The left ventricular function is normal. The left ventricular ejection fraction is within the normal range. There is normal LV segmental wall motion. Transmitral Doppler flow pattern is abnormal. RIGHT VENTRICLE The right ventricle is normal size. There is normal right ventricular wall thickness. The right ventricular systolic function is normal. ATRIA The left atrium size is normal. The right atrium size is normal. AORTIC VALVE The aortic valve is normal in structure. No aortic regurgitation is present. There is no aortic valvular stenosis. MITRAL VALVE The mitral valve is normal in structure. There is no mitral valve regurgitation noted. There is no mitral valve stenosis. TRICUSPID VALVE There is trace tricuspid regurgitation. There is no pulmonary hypertension. PULMONIC VALVE There is trace pulmonic valvular regurgitation. GREAT VESSELS The aortic root is normal in size. The IVC is normal in size and collapses >50% with inspiration. <Conclusion> There is normal left ventricular wall thickness. The left ventricular function is normal. The left ventricular ejection fraction is within the normal range. There is normal LV segmental wall motion. Transmitral Doppler flow pattern is abnormal. There is trace tricuspid regurgitation. There is no pulmonary hypertension.
[2019-02-11 23:32] VITALS: PULSE 100; RESP 18; TEMP 98.5; O2SAT 95
[2019-02-12] MEDS: Levalbuterol 1.25 MG/3 ML Inhal Soln UD IH SCH ×3 (02:55→13:38)
[2019-02-12] MEDS: Pantoprazole 40 mg EC Tab PO SCH (05:54)
[2019-02-12] MEDS: Vancomycin 1gm in NS 250ml 1 GM/250 ML BAG IVPB SCH (05:57)
--- NOTE | 2019-02-12 07:20 | CP.PCM.PN ---
<Timothy Stewart - Last Filed: 02/12/19 07:16> Subjective - Date & Time of Evaluation Date of Evaluation: 02/12/19 Time of Evaluation: 07:16 - Subjective Subjective: Gen Surg: Dr Guadalupe PT S&E on floor. NAEO. Reports pain is significantly improved. There is marked reduction in RLE erythema. Denies f/c, n/v. Asking when he can be discharged Objective - Vital Signs/Intake and Output Vital Signs (last 24 hours): Temp Pulse Resp BP Pulse Ox 98.5 F 100 H 18 148/95 H 95 02/11/19 22:00 02/11/19 22:00 02/11/19 22:00 02/11/19 22:00 02/11/19 22:00 - Medications Medications: Current Medications Acetaminophen (Tylenol 325mg Tab) 650 mg PO Q6H PRN PRN Reason: Pain, moderate (4-7) Acetaminophen (Tylenol 325mg Tab) 650 mg PO Q6 PRN PRN Reason: TEMP>=99.5F Acetaminophen (Tylenol 650 Mg Supp) 650 mg RC Q6H PRN PRN Reason: TEMP>=99.5F Albuterol/Ipratropium (Duoneb 3 Mg/0.5 Mg (3 Ml) Ud) 3 ml IH Q2H PRN PRN Reason: Shortness of Breath Clotrimazole (Lotrimin 1%) 0 gm TOP BID [facility] Stop: 02/20/19 10:01 Last Admin: 02/11/19 18:11 Dose: 1 appl Docusate Sodium (Colace) 100 mg PO TID [facility] Last Admin: 02/11/19 18:11 Dose: Not Given Enoxaparin Sodium (Lovenox) 40 mg SC DAILY [facility]; Protocol Last Admin: 02/11/19 09:32 Dose: 40 mg Ergocalciferol (Drisdol 50,000 Intl Units Cap) 1 cap PO Q7D [facility] Last Admin: 02/11/19 08:18 Dose: 1 cap Furosemide (Lasix) 40 mg IVP DAILY [facility] Stop: 02/12/19 10:01 Last Admin: 02/11/19 09:32 Dose: 40 mg Furosemide (Lasix) 40 mg IVP DAILY [facility] Ceftriaxone Sodium (Rocephin 2 Gm Ivpb) 2 gm in 100 mls @ 100 mls/hr IVPB DAILY [facility]; Protocol Stop: 02/19/19 10:01 Last Admin: 02/11/19 09:33 Dose: 100 mls/hr Vancomycin HCl (Vancomycin 1gm) 1 gm in 250 mls @ 167 mls/hr IVPB 0600,1800 [facility]; Protocol Last Admin: 02/12/19 05:57 Dose: 167 mls/hr Levalbuterol HCl (Xopenex) 1.25 mg IH [id number] [facility] Last Admin: 02/12/19 07:15 Dose: 1.25 mg Methylprednisolone (Solu-Medrol) 40 mg IVP Q8H [facility] Last Admin: 02/11/19 22:01 Dose: 40 mg Nicotine (Nicoderm Cq) 1 patch TD DAILY [facility] Last Admin: 02/11/19 09:33 Dose: 1 patch Ondansetron HCl (Zofran Inj) 4 mg IVP Q4H PRN PRN Reason: Nausea/Vomiting Pantoprazole Sodium (Protonix Ec Tab) 40 mg PO 0600 [facility] Last Admin: 02/12/19 05:54 Dose: 40 mg Polyethylene Glycol (Miralax) 17 gm PO BID [facility] Last Admin: 02/11/19 18:11 Dose: Not Given - Labs Labs: 02/11/19 07:00 02/11/19 07:00 PT 13.4 SECONDS (9.4-12.5) H 02/09/19 17:58 INR 1.21 02/09/19 17:58 APTT 32.5 Seconds (26.9-38.3) 02/09/19 17:58 - Constitutional Appears: Non-toxic - ENT Exam ENT Exam: Mucous Membranes Moist - Respiratory Exam Respiratory Exam: absent: Accessory Muscle Use, Respiratory Distress - Cardiovascular Exam Cardiovascular Exam: REGULAR RHYTHM. absent: Tachycardia - GI/Abdominal Exam GI & Abdominal Exam: Soft. absent: Distended, Tenderness - Extremities Exam Additional comments: RLE cellulitis significantly improved no area of fluctuance or drainable collection - Neurological Exam Neurological Exam: Alert, Awake Assessment and Plan - Assessment and Plan (Free Text) Assessment: 44M with RLE cellulitis Plan: cont abx as per ID no surgical intervention planned pt clear for d/c from surgical team will d/w Dr Anayeli Stewart, PGY4 <Lázaro Guadalupe - Last Filed: 02/12/19 07:27> Objective - Vital Signs/Intake and Output Vital Signs (last 24 hours): Temp Pulse Resp BP Pulse Ox 98.5 F 100 H 18 148/95 H 95 02/11/19 22:00 02/11/19 22:00 02/11/19 22:00 02/11/19 22:00 02/11/19 22:00 - Medications Medications: Current Medications Acetaminophen (Tylenol 325mg Tab) 650 mg PO Q6H PRN PRN Reason: Pain, moderate (4-7) Acetaminophen (Tylenol 325mg Tab) 650 mg PO Q6 PRN PRN Reason: TEMP>=99.5F Acetaminophen (Tylenol 650 Mg Supp) 650 mg RC Q6H PRN PRN Reason: TEMP>=99.5F Albuterol/Ipratropium (Duoneb 3 Mg/0.5 Mg (3 Ml) Ud) 3 ml IH Q2H PRN PRN Reason: Shortness of Breath Clotrimazole (Lotrimin 1%) 0 gm TOP BID [facility] Stop: 02/20/19 10:01 Last Admin: 02/11/19 18:11 Dose: 1 appl Docusate Sodium (Colace) 100 mg PO TID [facility] Last Admin: 02/11/19 18:11 Dose: Not Given Enoxaparin Sodium (Lovenox) 40 mg SC DAILY [facility]; Protocol Last Admin: 02/11/19 09:32 Dose: 40 mg Ergocalciferol (Drisdol 50,000 Intl Units Cap) 1 cap PO Q7D [facility] Last Admin: 02/11/19 08:18 Dose: 1 cap Furosemide (Lasix) 40 mg IVP DAILY [facility] Stop: 02/12/19 10:01 Last Admin: 02/11/19 09:32 Dose: 40 mg Furosemide (Lasix) 40 mg IVP DAILY [facility] Ceftriaxone Sodium (Rocephin 2 Gm Ivpb) 2 gm in 100 mls @ 100 mls/hr IVPB DAILY [facility]; Protocol Stop: 02/19/19 10:01 Last Admin: 02/11/19 09:33 Dose: 100 mls/hr Vancomycin HCl (Vancomycin 1gm) 1 gm in 250 mls @ 167 mls/hr IVPB 0600,1800 [facility]; Protocol Last Admin: 02/12/19 05:57 Dose: 167 mls/hr Levalbuterol HCl (Xopenex) 1.25 mg IH [id number] [facility] Last Admin: 02/12/19 07:15 Dose: 1.25 mg Methylprednisolone (Solu-Medrol) 40 mg IVP Q8H [facility] Last Admin: 02/11/19 22:01 Dose: 40 mg Nicotine (Nicoderm Cq) 1 patch TD DAILY [facility] Last Admin: 02/11/19 09:33 Dose: 1 patch Ondansetron HCl (Zofran Inj) 4 mg IVP Q4H PRN PRN Reason: Nausea/Vomiting Pantoprazole Sodium (Protonix Ec Tab) 40 mg PO 0600 [facility] Last Admin: 02/12/19 05:54 Dose: 40 mg Polyethylene Glycol (Miralax) 17 gm PO BID [facility] Last Admin: 02/11/19 18:11 Dose: Not Given - Labs Labs: 02/11/19 07:00 02/11/19 07:00 PT 13.4 SECONDS (9.4-12.5) H 02/09/19 17:58 INR 1.21 02/09/19 17:58 APTT 32.5 Seconds (26.9-38.3) 02/09/19 17:58 Assessment and Plan - Assessment and Plan (Free Text) Plan: Patient was seen, evaluated and examined by me at the bedside. I agree with assessment and plan as stated in the resident's note.
[2019-02-12 07:47] LABS: BASO # 0.01 K/mm3 (0.0-2.0); BASO % 0.1 % (0.0-3.0); HEMOGLOBIN 15.2 g/dL (14.0-18.0); LYMPH # 1.2 (1.2-3.4); LYMPH % 6.2 % (22.0-35.0); MEAN CELL VOLUME 89.1 fl (80.0-105.0); MEAN CORPUSCULAR HEMOGLOBIN 28.7 pg (25.0-35.0); MEAN CORPUSCULAR HGB CONC 32.2 g/dl (31.0-37.0); MEAN PLATELET VOLUME 8.6 fl (7.0-11.0); MONO # 0.8 (0.1-0.6); MONO % 4.1 % (1.0-6.0); RBC 5.3 10^6/uL (3.5-6.1); RED CELL DISTRIBUTION WIDTH 13.8 % (11.5-14.5); WHITE BLOOD COUNT 19.3 10^3/uL (4.5-11.0)
[2019-02-12] MEDS: MethylPREDNISolone 40 mg Vial IVP SCH (07:55)
[2019-02-12 08:12] LABS: ALB/GLOB RATIO 0.9 (1.1-1.8); ALBUMIN 3.9 g/dL (3.0-4.8); ALT/SGPT 29 U/L (7-56); AST/SGOT 27 U/L (17-59); BILIRUBIN,DIRECT 0.2 mg/dL (0.0-0.4); BLOOD UREA NITROGEN 19 mg/dL (7-21); CALCIUM 8.9 mg/dL (8.4-10.5); GFR NON-AFRICAN AMERICAN > 60
[2019-02-12 08:29] LABS: FRUCTOSAMINE 190 umol/L (190-270)
[2019-02-12] MEDS: Clotrimazole 1% Cream(30 gm) TOP SCH (10:21)
[2019-02-12] MEDS: POLYETHYLENE GLYCOL 3350 17 GM/Dose PACKET PO SCH (10:22)
[2019-02-12] MEDS: Enoxaparin 40 mg Syringe SC SCH (10:22)
[2019-02-12] MEDS: cefTRIAXone 2 GM IN NS 2 GM/100 ML BAG IVPB SCH (10:22)
[2019-02-12 10:23] VITALS: BP 120/70
--- NOTE | 2019-02-12 11:03 | PN ---
DATE: 02/12/2019 SUBJECTIVE: This is a 44-year-old [place]azi male. The patient was admitted with cellulitis of right leg. The patient has history of asthma. He is a smoker. The patient is seen this morning. He is clinically improved. His cellulitis must treated with Rocephin and vancomycin during the hospital stay. The patient also had fungal infection of the foot, that has been treated with clotrimazole. The patient has history of nicotine addiction. The patient was on nicotine patch. The patient was on pantoprazole to gastritis. The patient also was given treatment for asthma with steroids, Solu-Medrol. We will discontinue the Solu-Medrol. The probably be discharged today. He is going to go on Augmentin, doxycycline and he will get prednisone dose. PHYSICAL EXAMINATION: VITAL SIGNS: Pulse is 100, blood pressure 114/95, respirations are 18 and O2 sat is 95% on room air. The patient's temperature is 98.5. HEENT: Head is normocephalic. The patient does carry body tattoos on the skin. He is awake and alert. LUNGS: Clear. HEART: Normal sinus rhythm. ABDOMEN: Soft. Liver and spleen not palpable. CENTRAL NERVOUS SYSTEM: No focal deficit. DIAGNOSES: 1. Cellulitis, right leg fungal infection of the toes. 2. Asthma. 3. Nicotine dependence. MEDICATIONS: As mentioned, the patient will be on Ventolin, given a prescription for that. The patient is going to use the Augmentin and doxycycline for 1 week. The patient will be on take care of the foot regarding the fungal infection. His prognosis is good. The patient is clinically stable. Xu Guaman MD
[2019-02-12 12:11] LABS: BARBITURATES, UR NEGATIVE (NEGATIVE); BENZODIAZEPINES, UR NEGATIVE (NEGATIVE); OPIATES, UR NEGATIVE (NEGATIVE); PHENCYCLIDINE, UR NEGATIVE (NEGATIVE)
--- NOTE | 2019-02-12 23:56 | PN ---
DATE: 02/12/2019 SUBJECTIVE: The patient Is in bed, in acute distress, nontoxic. PHYSICAL EXAMINATION: VITAL SIGNS: Temperature is 98, blood pressure is 120/70 and respiratory rate of 16. HEENT: Unremarkable. NECK: Supple. LUNGS: Have decreased breath sounds. HEART: Normal S1 and S2. ABDOMEN: Soft. EXTREMITIES: Examination of the leg, has resolved very nicely and erythema is much improved. LABORATORY EXAMINATION: Reveals a white count of 19,000. Chemistries are noted. Toxicology is noted. Immunology is noted. Serology is noted. Blood cultures are negative. ASSESSMENT AND PLAN: This is a 44-year-old male who was seen earlier this morning with sepsis, right lower extremity, probable Streptococcus secondary to tinea pedis. Complete with p.o. Augmentin and doxycycline. Followup a repeat WBC to resolution and followup with PMD. Jared Cesar MD
--- NOTE | 2019-02-14 02:26 | DS ---
BRIEF HISTORY: This is the patient of Dr. Tay Wei. The patient is a 44-year-old [place] male with history of asthma who presented through the emergency room with anterior right lower extremity pain and swelling for 2 days. The pain was partially relieved with ibuprofen and rest, worsened with ambulation. There was swelling and redness, tenderness to touch and chills. HOSPITAL COURSE: The patient was admitted to the medical floor for right lower extremities cellulitis. He was given IV vancomycin and Zosyn in the emergency room and then started on Teflaro. He was seen by Infectious Disease, Dr. Cesar. He was also given respiratory treatments for the asthma and IV Solu-Medrol for wheezing. The patient was seen by Surgery, Dr. Guadalupe as well. No surgical intervention was needed. There was improvement in the cellulitis with the IV antibiotics. The patient was cleared by Infectious Disease to go home on oral antibiotics. He was given prescription for doxycycline 100 mg twice a day for 7 days and Augment 875 mg twice a day for 7 days. DISCHARGE DIAGNOSES: Right lower extremity cellulitis, asthma and tinea pedis. DISCHARGE MEDICATIONS: Ventolin 2 puffs every 6 hours p.r.n. as needed, prednisone 10 mg twice a day with instructions for tapering dose given, Augmentin 875 mg twice a day for 7 days and doxycycline 100 mg twice a day for 7 days. FOLLOWUP: The patient will follow up with his primary care doctor in 1 week. Mundo Guaman MD [id number]
--- NOTE | 2019-02-15 09:19 | PQF ---
PROVIDER RESPONSE TEXT: Provider was unable to determine a response for this query. REVIEWER QUERY TEXT: Asthma Specificity and Type Asthma is documented in the Medical Record. Please specify the type and severity of asthma and indic ate if this is associated with exacerbation or status asthmaticus. Such as: -- Mild intermittent -- Mild persistent -- Moderate persistent -- Severe persistent -- Exercise induced bronchospasm -- Cough variant asthma -- Other, please specify The patient's Clinical Indicators include: Please see query. Thank you. Query created by: Lizz Smith on 02/14/2019 12:31 PM Electronically signed by: Mundo Guaman MD 02/15/2019 9:15 AM
== END 2019-02-12 13:53 | disposition home or self-care (01) | DRG 603 ==
LOC: ED 15:03 → ERH 17:11 → MERGE 17:11 → ERH 17:21 → 5RSO 19:15
PROVIDERS: ADMIT Internal Medicine; ATTEND Internal Medicine
DX: L03.115 Cellulitis of right lower limb (principal); J45.909 Unspecified asthma, uncomplicated; B35.3 Tinea pedis; E66.9 Obesity, unspecified; E78.1 Pure hyperglyceridemia; F17.210 Nicotine dependence, cigarettes, uncomplicated; Z68.29 Body mass index [BMI] 29.0-29.9, adult; E55.9 Vitamin D deficiency, unspecified; I89.0 Lymphedema, not elsewhere classified; J43.9 Emphysema, unspecified; K29.70 Gastritis, unspecified, without bleeding; R09.02 Hypoxemia; R73.03 Prediabetes; Z83.3 Family history of diabetes mellitus